=== PATIENT | male | born 1935 | race Caucasian/White ===

== ENCOUNTER → 2017-07-27 | Outpatient (CLI) | payer MEDICARE ==
[2017-07-27 13:23] LABS: HCT 47.4 % (39.0-53.0); MCHC 33.8 g/dL (31.0-37.0); MCV 91.7 fL (80.0-100.0); Mean Platelet Volume 8.3; Platelet Count 191 k/uL (150-450); RBC 5.17 m/uL (4.30-5.90); RDW 12.9 % (11.5-15.5); WBC 9.2 k/uL (3.8-10.6)
[2017-07-27 13:44] LABS: Calcium 9.5 mg/dL (8.4-10.2); Potassium 5.2 mmol/L (3.5-5.1)
[2017-07-27 14:00] LABS: T4, Free (Free Thyroxine) 0.92 ng/dL (0.78-2.19)
== END | disposition home or self-care (01) ==
LOC: LABWHC1 12:47
PROVIDERS: ATTEND Internal Medicine Interventional Cardiology
DX: I48.91 Unspecified atrial fibrillation (principal); I10 Essential (primary) hypertension
CPT/HCPCS: 36415; 80048; 84439; 84443; 85027

== ENCOUNTER → 2017-08-25 | Outpatient (CLI) | payer MEDICARE ==
[2017-08-25 14:29] LABS: HCT 46.1 % (39.0-53.0); HGB 15.7 gm/dL (13.0-17.5); MCH 31.1 pg (25.0-35.0); MCHC 33.9 g/dL (31.0-37.0); MCV 91.5 fL (80.0-100.0); Mean Platelet Volume 7.7; Platelet Count 177 k/uL (150-450); RBC 5.04 m/uL (4.30-5.90); WBC 8.5 k/uL (3.8-10.6)
[2017-08-25 14:39] LABS: Potassium 4.8 mmol/L (3.5-5.1)
== END | disposition home or self-care (01) ==
LOC: LABPAT 14:00
PROVIDERS: ATTEND Internal Medicine Interventional Cardiology
DX: Z01.812 Encounter for preprocedural laboratory examination (principal); I48.1 Persistent atrial fibrillation
CPT/HCPCS: 36415; 80051; 82565; 84520; 85027

== ENCOUNTER → 2017-09-02 | Day surgery (SDC) | payer MEDICARE ==
[2017-08-29 15:29] VITALS: BMI 29.2
[~2017-09-02] MED LIST: LACTATED RINGERS 1,000 ML IV SCH; PROPOFOL 10 MG/ML 20 ML VIAL IV ONE; SODIUM CHLORIDE 0.9% 1,000 ML IV SCH; SODIUM CHLORIDE 0.9% 500 ML IV ONE
--- NOTE | 2017-09-02 07:58 | CE ---
CARDIAC ELECTROPHYSIOLOGY REPORT DATE OF SERVICE: 09/02/2017 PROCEDURE: Electrical cardioversion. PERFORMED BY: Dr. Nayla Cameron. INDICATION: Persistent atrial fibrillation, unresponsive to pharmacological efforts. CLINICAL INFORMATION: Mr. Hampton is a gentleman with a history of hypertension, hyperlipidemia, who developed recent onset persistent atrial fibrillation, was brought in for elective cardioversion after due discussion regarding risks, benefits, options and adequate anticoagulation. PROCEDURE NOTE: Under the influence of ultra short-acting intravenous anesthetic agent with the attendance of the anesthesiologist, a single 200 joule shock was delivered with anterior and posterior patches. Patient converted to sinus rhythm and remained hemodynamically stable. He had sinus bradycardia. He was neurologically intact. This was a successful electrical cardioversion. He will be discharged on metoprolol 25 mg daily starting tomorrow and he will also continue Eliquis 5 mg b.i.d. and simvastatin 40 mg daily, and I will see him in the office on the at 10:45 am. Discharge instructions were given. Once patient is up and about, ambulates and has had a meal, he will be discharged. MMODL / IJN: [id number] /
[2017-09-02 08:02] VITALS: RESP 18
[2017-09-02 08:14] VITALS: TEMP 98
[2017-09-02 10:34] VITALS: PULSE 54
[2017-09-02 11:38] VITALS: BP 111/67
== END | disposition home or self-care (01) ==
LOC: CATHCVL 05:45
PROVIDERS: ATTEND Internal Medicine Interventional Cardiology
DX: I48.1 Persistent atrial fibrillation (principal); I10 Essential (primary) hypertension; E78.00 Pure hypercholesterolemia, unspecified; E78.5 Hyperlipidemia, unspecified; Z79.82 Long term (current) use of aspirin; Z79.01 Long term (current) use of anticoagulants; Z79.899 Other long term (current) drug therapy; F17.210 Nicotine dependence, cigarettes, uncomplicated
CPT/HCPCS: 92960; J2704

== ENCOUNTER → 2022-01-26 | Outpatient (CLI) | payer MEDICARE, OTHER ==
[2022-01-26 11:25] LABS: HCT 44.7 % (39.0-53.0); HGB 14.7 gm/dL (13.0-17.5); MCH 31.2 pg (25.0-35.0); MCHC 32.9 g/dL (31.0-37.0); MCV 94.9 fL (80.0-100.0); Mean Platelet Volume 9.4; Platelet Count 173 k/uL (150-450); RBC 4.71 m/uL (4.30-5.90); RDW 12.7 % (11.5-15.5)
[2022-01-26 11:30] LABS: Potassium 5.4 mmol/L (3.5-5.1)
== END | disposition home or self-care (01) ==
LOC: LABPAT 10:27
PROVIDERS: ATTEND Internal Medicine Interventional Cardiology
DX: Z00.00 Encounter for general adult medical examination without abnormal findings (principal)
CPT/HCPCS: 80051; 82565; 84520; 85027

== ENCOUNTER 2022-01-27 08:07 | Day surgery (SDC) | payer MEDICARE, OTHER ==
[2022-01-26 12:55] VITALS: BMI 29.5
[~2022-01-27 08:07] MED LIST changes: -LACTATED RINGERS 1,000 ML IV SCH; -PROPOFOL 10 MG/ML 20 ML VIAL IV ONE; -SODIUM CHLORIDE 0.9% 500 ML IV ONE
[2022-01-27 08:58] VITALS: TEMP 98.2
[2022-01-27] MEDS ORDERED: PROPOFOL 10 MG/ML 20 ML VIAL IV ONE (09:26)
[2022-01-27 13:40] VITALS: RESP 16
[2022-01-27 13:42] VITALS: BP 130/70; PULSE 69
--- NOTE | 2022-01-27 20:55 | CE ---
CARDIAC ELECTROPHYSIOLOGY REPORT PROCEDURE PERFORMED: Electrical cardioversion. INDICATION FOR PROCEDURE: Persistent atrial fibrillation/atypical flutter. DESCRIPTION OF PROCEDURE: Under the influence of [id number] intravenous anesthetic agent with the attendance of the anesthesiologist, a single shock of 200 joules was delivered with anterior and posterior patches. The patient converted to sinus rhythm, remained in sinus rhythm with sinus bradycardia. He was fully awake, neurologically intact. Blood pressure was slightly low requiring 1 dose of phenylephrine. This is a successful electrical cardioversion. He will be discharged later on today after he is up, ambulatory, and has had eaten something. He will be discharged later on today, and he has an appointment to see me on the of this month. Details were discussed with the patient and . CRISTINE / KAMRYNN: [id number] /
== END 2022-01-27 11:30 | disposition home or self-care (01) ==
LOC: CATHCVL 08:07
PROVIDERS: ATTEND Internal Medicine Interventional Cardiology
DX: I48.19 Other persistent atrial fibrillation (principal); I48.4 Atypical atrial flutter; I10 Essential (primary) hypertension; E78.5 Hyperlipidemia, unspecified; E78.00 Pure hypercholesterolemia, unspecified; Z88.8 Allergy status to other drugs, medicaments and biological substances; Z79.01 Long term (current) use of anticoagulants; Z79.899 Other long term (current) drug therapy
CPT/HCPCS: 92960; J2704

== ENCOUNTER 2022-01-30 07:36 | Inpatient (IN) | payer MEDICARE, OTHER ==
[2022-01-30] MEDS ORDERED: IPRATROPIUM-ALBUTEROL 3 ML NEB INHALATION STA (07:59)
--- NOTE | 2022-01-30 08:01 | ED ---
General Adult HPI - General Chief complaint: Shortness of Breath Stated complaint: SOB Time Seen by Provider: 01/30/22 07:46 Source: patient, RN notes reviewed, old records reviewed (Previous cardioversion) Mode of arrival: ambulatory Limitations: no limitations - History of Present Illness Initial comments: Patient is a pleasant 86-year-old male presenting to the emergency department with concerns with difficulty in breathing. Onset of symptoms was yesterday and has somewhat worsened since that time. No cough. No chest pain. No fever. No history of similar symptoms previously. Patient did recently discontinue smoking. Patient did have cardioversion done 3 days ago for atrial fibrillation. Patient is on anticoagulation with eliquis - Related Data Home Medications Medication Instructions Recorded Confirmed Apixaban [Eliquis] 5 mg PO BID 08/29/17 01/27/22 Simvastatin [Zocor] 40 mg PO HS 08/29/17 01/27/22 Metoprolol Tartrate [Lopressor] 50 mg PO TID 01/26/22 01/27/22 Allergies Allergy/AdvReac Type Severity Reaction Status Date / Time lisinopril Allergy facial Verified 01/30/22 07:43 swelling, difficulty breathing. Review of Systems ROS Statement: Those systems with pertinent positive or pertinent negative responses have been documented in the HPI. ROS Other: All systems not noted in ROS Statement are negative. Constitutional: Denies: fever Eyes: Denies: eye pain ENT: Denies: ear pain Respiratory: Reports: as per HPI, dyspnea. Denies: cough Cardiovascular: Denies: chest pain Endocrine: Denies: fatigue Gastrointestinal: Denies: abdominal pain Genitourinary: Denies: dysuria Musculoskeletal: Denies: back pain Skin: Denies: rash Neurological: Denies: weakness Past Medical History Past Medical History: Atrial Flutter, Hyperlipidemia, Hypertension History of Any Multi-Drug Resistant Organisms: None Reported Past Surgical History: Cholecystectomy, Tonsillectomy Past Anesthesia/Blood Transfusion Reactions: No Reported Reaction Past Psychological History: No Psychological Hx Reported Smoking Status: Former smoker Past Alcohol Use History: None Reported Past Drug Use History: None Reported General Exam Limitations: no limitations General appearance: alert, in no apparent distress Head exam: Present: normocephalic Eye exam: Present: normal appearance Neck exam: Present: normal inspection Respiratory exam: Present: wheezes (Mild expiratory wheeze) Cardiovascular Exam: Present: regular rate, normal rhythm GI/Abdominal exam: Present: soft. Absent: tenderness Extremities exam: Present: normal inspection. Absent: pedal edema, calf tenderness Neurological exam: Present: alert Psychiatric exam: Present: normal affect, normal mood Skin exam: Present: normal color Course Vital Signs 01/30/22 01/30/22 01/30/22 07:40 08:43 09:57 Temperature 98.5 F Pulse Rate 59 L 60 82 Respiratory 20 18 Rate Blood Pressure 176/82 140/74 O2 Sat by Pulse 97 96 Oximetry 01/30/22 13:13 Temperature Pulse Rate 82 Respiratory 18 Rate Blood Pressure 153/80 O2 Sat by Pulse 95 Oximetry EKG Findings - EKG Comments: EKG Findings:: Interpreted by me: Sinus bradycardia rate 58. AL 149. QRS 90. QT 379. QTC 475. Normal axis. Normal QRS. Nonspecific ST-T. Medical Decision Making - Medical Decision Making Patient reevaluated. Patient and family updated. Case was discussed with Dr. Fair, who will admit covering Dr. English. Cardiology will be placed on consult - Lab Data Result diagrams: 01/30/22 08:09 01/30/22 08:09 Lab Results 01/30/22 01/30/22 01/30/22 Range/Units 08:09 08:09 08:09 WBC 11.3 H (3.8-10.6) k/uL RBC 4.73 (4.30-5.90) m/uL Hgb 15.2 (13.0-17.5) gm/dL Hct 44.0 (39.0-53.0) % MCV 93.0 (80.0-100.0) fL MCH 32.2 (25.0-35.0) pg MCHC 34.6 (31.0-37.0) g/dL RDW 12.5 (11.5-15.5) % Plt Count 151 (150-450) k/uL MPV 9.8 Neutrophils % 88 % Lymphocytes % 4 % Monocytes % 6 % Eosinophils % 1 % Basophils % 0 % Neutrophils # 10.0 H (1.3-7.7) k/uL Lymphocytes # 0.5 L (1.0-4.8) k/uL Monocytes # 0.6 (0-1.0) k/uL Eosinophils # 0.1 (0-0.7) k/uL Basophils # 0.1 (0-0.2) k/uL PT 11.3 (9.0-12.0) sec INR 1.0 (<1.2) APTT 27.7 (22.0-30.0) sec Sodium 139 (137-145) mmol/L Potassium 5.1 (3.5-5.1) mmol/L Chloride 107 (98-107) mmol/L Carbon Dioxide 25 (22-30) mmol/L Anion Gap 7 mmol/L BUN 26 H (9-20) mg/dL Creatinine 1.14 (0.66-1.25) mg/dL Est GFR (CKD-EPI)AfAm 68 (>60 ml/min/1.73 sqM) Est GFR (CKD-EPI)NonAf 59 (>60 ml/min/1.73 sqM) Glucose 127 H (74-99) mg/dL Plasma Lactic Acid Jordi (0.7-2.0) mmol/L Calcium 8.6 (8.4-10.2) mg/dL Total Bilirubin 2.3 H (0.2-1.3) mg/dL AST 27 (17-59) U/L ALT 24 (4-49) U/L Alkaline Phosphatase 61 (38-126) U/L Troponin I (0.000-0.034) ng/mL NT-Pro-B Natriuret Pep pg/mL Total Protein 6.5 (6.3-8.2) g/dL Albumin 4.2 (3.5-5.0) g/dL Coronavirus (PCR) (Not Detectd) Influenza Type A RNA (Not Detectd) Influenza Type B (PCR) (Not Detectd) 01/30/22 01/30/22 01/30/22 Range/Units 08:09 08:09 08:09 WBC (3.8-10.6) k/uL RBC (4.30-5.90) m/uL Hgb (13.0-17.5) gm/dL Hct (39.0-53.0) % MCV (80.0-100.0) fL MCH (25.0-35.0) pg MCHC (31.0-37.0) g/dL RDW (11.5-15.5) % Plt Count (150-450) k/uL MPV Neutrophils % % Lymphocytes % % Monocytes % % Eosinophils % % Basophils % % Neutrophils # (1.3-7.7) k/uL Lymphocytes # (1.0-4.8) k/uL Monocytes # (0-1.0) k/uL Eosinophils # (0-0.7) k/uL Basophils # (0-0.2) k/uL PT (9.0-12.0) sec INR (<1.2) APTT (22.0-30.0) sec Sodium (137-145) mmol/L Potassium (3.5-5.1) mmol/L Chloride (98-107) mmol/L Carbon Dioxide (22-30) mmol/L Anion Gap mmol/L BUN (9-20) mg/dL Creatinine (0.66-1.25) mg/dL Est GFR (CKD-EPI)AfAm (>60 ml/min/1.73 sqM) Est GFR (CKD-EPI)NonAf (>60 ml/min/1.73 sqM) Glucose (74-99) mg/dL Plasma Lactic Acid Jordi 1.1 (0.7-2.0) mmol/L Calcium (8.4-10.2) mg/dL Total Bilirubin (0.2-1.3) mg/dL AST (17-59) U/L ALT (4-49) U/L Alkaline Phosphatase (38-126) U/L Troponin I 0.036 H* (0.000-0.034) ng/mL NT-Pro-B Natriuret Pep 3470 pg/mL Total Protein (6.3-8.2) g/dL Albumin (3.5-5.0) g/dL Coronavirus (PCR) (Not Detectd) Influenza Type A RNA (Not Detectd) Influenza Type B (PCR) (Not Detectd) 01/30/22 01/30/22 Range/Units 08:09 08:09 WBC (3.8-10.6) k/uL RBC (4.30-5.90) m/uL Hgb (13.0-17.5) gm/dL Hct (39.0-53.0) % MCV (80.0-100.0) fL MCH (25.0-35.0) pg MCHC (31.0-37.0) g/dL RDW (11.5-15.5) % Plt Count (150-450) k/uL MPV Neutrophils % % Lymphocytes % % Monocytes % % Eosinophils % % Basophils % % Neutrophils # (1.3-7.7) k/uL Lymphocytes # (1.0-4.8) k/uL Monocytes # (0-1.0) k/uL Eosinophils # (0-0.7) k/uL Basophils # (0-0.2) k/uL PT (9.0-12.0) sec INR (<1.2) APTT (22.0-30.0) sec Sodium (137-145) mmol/L Potassium (3.5-5.1) mmol/L Chloride (98-107) mmol/L Carbon Dioxide (22-30) mmol/L Anion Gap mmol/L BUN (9-20) mg/dL Creatinine (0.66-1.25) mg/dL Est GFR (CKD-EPI)AfAm (>60 ml/min/1.73 sqM) Est GFR (CKD-EPI)NonAf (>60 ml/min/1.73 sqM) Glucose (74-99) mg/dL Plasma Lactic Acid Jordi (0.7-2.0) mmol/L Calcium (8.4-10.2) mg/dL Total Bilirubin (0.2-1.3) mg/dL AST (17-59) U/L ALT (4-49) U/L Alkaline Phosphatase (38-126) U/L Troponin I (0.000-0.034) ng/mL NT-Pro-B Natriuret Pep pg/mL Total Protein (6.3-8.2) g/dL Albumin (3.5-5.0) g/dL Coronavirus (PCR) Not Detected (Not Detectd) Influenza Type A RNA Not Detected (Not Detectd) Influenza Type B (PCR) Not Detected (Not Detectd) - Radiology Data Radiology results: image reviewed (Chest x-ray also read by myself shows cardiomegaly with some vascular congestion) Disposition Clinical Impression: Congestive heart failure Disposition: ADMITTED IP TO THIS HOSP Is patient prescribed a controlled substance at d/c from ED?: No Referrals: Juan J English MD [Primary Care Provider] - 1-2 days Time of Disposition: 13:27
[2022-01-30 08:21] LABS: Basophils # (A) 0.1 k/uL (0-0.2); Basophils % (A) 0 %; Eosinophils # (A) 0.1 k/uL (0-0.7); Eosinophils % (A) 1 %; HGB 15.2 gm/dL (13.0-17.5); Lymphocytes # (A) 0.5 k/uL (1.0-4.8); Lymphocytes % (A) 4 %; MCH 32.2 pg (25.0-35.0); MCHC 34.6 g/dL (31.0-37.0); Mean Platelet Volume 9.8; Monocytes # (A) 0.6 k/uL (0-1.0); Monocytes % (A) 6 %; Neutrophils % (A) 88 %; Platelet Count 151 k/uL (150-450); RBC 4.73 m/uL (4.30-5.90); RDW 12.5 % (11.5-15.5); WBC 11.3 k/uL (3.8-10.6)
--- NOTE | 2022-01-30 08:27 | XR ---
EXAMINATION TYPE: XR chest 2V DATE OF EXAM: COMPARISON: NONE HISTORY: Shortness of breath TECHNIQUE: Frontal and lateral views of the chest are obtained. FINDINGS: Scattered senescent parenchymal changes noted. Hyperinflation compatible with COPD. No evidence for infiltrate. No evidence for atelectasis. Cardiomegaly with mild pulmonary venous engorgement. No evidence for overt failure. Mediastinal structures are stable and grossly unremarkable. No evidence for hilar prominence. Degenerative changes dorsal spine. IMPRESSION: 1. Cardiomegaly with mild pulmonary venous engorgement. No evidence for overt failure. 2. COPD.
[2022-01-30 08:31] LABS: Partial Thromboplastin Time 27.7 sec (22.0-30.0); Prothrombin Time 11.3 sec (9.0-12.0)
[2022-01-30 08:34] LABS: Calcium 8.6 mg/dL (8.4-10.2); Total Bilirubin 2.3 mg/dL (0.2-1.3)
[2022-01-30 08:36] LABS: Albumin 4.2 g/dL (3.5-5.0); Potassium 5.1 mmol/L (3.5-5.1); Total Protein 6.5 g/dL (6.3-8.2)
[2022-01-30] MEDS ORDERED: ASPIRIN 325 MG TAB PO STA (13:27)
[2022-01-30] MEDS: FUROSEMIDE 10 MG/ML 4 ML VIAL IV SCH (14:32)
[2022-01-30] MEDS: METOPROLOL TARTRATE 50 MG TAB PO SCH (15:09)
[2022-01-30] MEDS ORDERED: ONDANSETRON 4 MG/2 ML VIAL IVP PRN (16:28)
[2022-01-30] MEDS ORDERED: LORazepam 0.5 MG TAB PO PRN (16:28)
[2022-01-30] MEDS ORDERED: LACTULOSE 20 GM/30 ML CUP PO PRN (16:28)
[2022-01-30] MEDS ORDERED: CALCIUM CARBONATE 500 MG CHEWABLE PO PRN (16:28)
[2022-01-30] MEDS ORDERED: MELATONIN 3 MG TABLET PO PRN (16:28)
[2022-01-30] MEDS ORDERED: ACETAMINOPHEN TAB 325 MG TAB PO PRN (16:28)
[2022-01-30] MEDS ORDERED: NALOXONE 0.4 MG/ML 1 ML VIAL IV PRN (16:28)
--- NOTE | 2022-01-30 16:28 | P.HPIM ---
History of Present Illness H&P Date: 01/30/22 Chief Complaint: Short of breath This is a very pleasant 86-year-old patient who follows with Dr. Juan J English. Insights Strategist Dr. CARLA Cameron. On 02/06/2022 patient underwent DC cardioversion for atrial flutter by Dr. CARLA Cameron and was back in sinus rhythm. Patient did well the following day. Yesterday started noticing that he was getting short of breath. Did progress to this morning. Patient has some lower extremity edema which she's hasn't noticed himself. No chest pain or palpitation no cough no fever no chills. Patient is accompanied by his in the ER. Patient had a stress test about 5 months ago that was negative. Review of systems: GEN.: Tired EYES: None HEENT: None NECK: None RESPIRATORY: As above CARDIOVASCULAR: As above GASTROINTESTINAL: None GENITOURINARY: None MUSCULOSKELETAL: None LYMPHATICS: None HEMATOLOGICAL: None PSYCHIATRY: None NEUROLOGICAL: None Past medical history to include: Atrial flutter fibrillation cardioverted on 02/06/2022, hyperlipidemia, hypertension Social history: Patient smoked for over 70 years stopping about 2 weeks ago. Alcohol rarely. 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 . Family history: Reviewed, noncontributory to presentation Physical examination: VITAL SIGNS: 98.5, 82, 18, 1 53 x 80, 95% room air GENERAL: BMI 29.8, sitting up, not in distress. EYES: Pupils equal. Conjunctiva normal. HEENT: External appearance of nose and ears normal, oral cavity grossly normal. NECK: JVD raised; masses not palpable. HEART: First and second heart sounds are normal; edema present. LUNGS: Respiratory rate normal; clear to auscultation. ABDOMEN: Soft, nontender, liver spleen not palpable, no masses palpable. PSYCH: Alert and oriented x3; mood and affect normal. MUSCULOSKELETAL:No Clubbing/cyanosis;muscles-grossly intact, OA NEUROLOGICAL: Cranial nerves grossly intact; no facial asymmetry, power and sensation grossly intact. LYMPHATICS: No lymph nodes palpable in the axilla and neck INVESTIGATIONS, reviewed in the clinical context: WBC 11.3 hemoglobin 15.2 platelets 151 potassium 5.1 BUN 26 creatinine 1.14 Troponin I 0.036, 0.034 ProBNP 3470 COVID 19/influenza type A/influenza diabetes: Not detected EKG tracing personally reviewed by me-no sinus rhythm, ST segment depression in inferolateral leads, rate 58 Chest x-ray film personally reviewed by me-cardiomegaly, some venous prominence. Hyperinflation Assessment and plan: -Acute congestive heart failure in a patient had DC cardioversion for atrial flutter fibrillation 3 days ago. EF not known. IV Lasix. Telemetry. Consult cardiology. 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 Nebulized Pulmicort -Hyperlipidemia Zocor -Positive troponin could be from underlying CHF. Patient has ST segment depression in inferolateral leads. Patient may benefit from a nuclear stress test, to rule out underlying ischemic heart disease Telemetry. IV Lasix. Resume home medications. DuoNeb. Nebulized Pulmicort. Eliquis. Care was discussed with the patient and at the bedside. Questions answered. Past Medical History Past Medical History: Atrial Flutter, Hyperlipidemia, Hypertension History of Any Multi-Drug Resistant Organisms: None Reported Past Surgical History: Cholecystectomy, Tonsillectomy Past Anesthesia/Blood Transfusion Reactions: No Reported Reaction Past Psychological History: No Psychological Hx Reported Smoking Status: Former smoker Past Alcohol Use History: None Reported Past Drug Use History: None Reported Medications and Allergies Home Medications Medication Instructions Recorded Confirmed Type Apixaban [Eliquis] 5 mg PO BID 08/29/17 01/30/22 History Simvastatin [Zocor] 40 mg PO HS 08/29/17 01/30/22 History Metoprolol Tartrate [Lopressor] 25 mg PO BID 01/30/22 01/30/22 History Allergies Allergy/AdvReac Type Severity Reaction Status Date / Time lisinopril Allergy facial Verified 01/30/22 15:24 swelling, difficulty breathing. Physical Exam Vitals: Vital Signs Temp Pulse Resp BP Pulse Ox 01/30/22 14:35 83 18 154/72 96 01/30/22 13:13 82 18 153/80 95 01/30/22 09:57 82 18 140/74 96 01/30/22 08:43 60 01/30/22 07:40 98.5 F 59 L 20 176/82 97 Intake and Output 01/30/22 01/30/22 01/30/22 06:59 14:59 22:59 Other: Weight 97.069 kg Results CBC & Chem 7: 01/30/22 08:09 01/30/22 08:09 Labs: Abnormal Lab Results - Last 24 Hours (Table) 01/30/22 01/30/22 01/30/22 Range/Units 08:09 08:09 08:09 WBC 11.3 H (3.8-10.6) k/uL Neutrophils # 10.0 H (1.3-7.7) k/uL Lymphocytes # 0.5 L (1.0-4.8) k/uL BUN 26 H (9-20) mg/dL Glucose 127 H (74-99) mg/dL Total Bilirubin 2.3 H (0.2-1.3) mg/dL Troponin I 0.036 H* (0.000-0.034) ng/mL
[2022-01-30] MEDS: NITROGLYCERIN OINT 1 INCH/GM PACKET TOPICAL SCH ×2 (18:05→20:08)
[2022-01-30] MEDS: ATORVASTATIN 20 MG TAB PO SCH (20:09)
[2022-01-30] MEDS: APIXABAN 5 MG TAB PO SCH (20:09)
[2022-01-31] MEDS: METOPROLOL TARTRATE 50 MG TAB PO SCH ×2 (00:15→08:23)
[2022-01-31] MEDS: FUROSEMIDE 10 MG/ML 4 ML VIAL IV SCH ×2 (02:16→13:01)
[2022-01-31 07:17] LABS: Calcium 8.9 mg/dL (8.4-10.2); Potassium 4.2 mmol/L (3.5-5.1)
[2022-01-31] MEDS: APIXABAN 5 MG TAB PO SCH ×2 (08:23→20:08)
[2022-01-31] MEDS: NITROGLYCERIN OINT 1 INCH/GM PACKET TOPICAL SCH ×4 (08:23→20:08)
[2022-01-31] MEDS ORDERED: ASPIRIN 325 MG TAB PO SCH (09:00)
--- NOTE | 2022-01-31 14:56 | P.CRDCN ---
History of Present Illness Consult date: 01/31/22 Consult reason: congestive heart failure History of present illness: History of present illness: This is an 86-year-old male patient of Dr. Joe Cameron with past medical history of atrial fibrillation, atrial flutter, hypertension, dyslipidemia, history of tobacco use and dependence. Patient had cardioversion done initially in 2018 with good results. He states that recently he was mowing the lawn and developed shortness of breath and was found to be in atrial flutter 3-[address] CARLA Cameron scheduled him for another cardioversion which was performed on 01/27/2022. Patient converted to a sinus rhythm and was discharged home. His Lopressor dose prior to procedure was 50 mg 3 times daily and he was discharged home on 25 twice daily. Patient states he was doing well until evening when he developed shortness of breath along with palpitations which were intermittent and yesterday he had lower extremity edema which has subsequently resolved. Echocardiogram 12/2020: EF of 50%, Mild MR, mild TR, mild OK, mild to moderate aortic regurgitation EKG sinus bradycardia. compliance monitor sinus bradycardia. No documented episodes of atrial fibrillation/flutter Chest x-ray: Cardiomegaly with mild pulmonary venous engorgement. No evidence of overt failure. COPD. WBC 11.3, hemoglobin 15.2. Electrolytes normal. BUN 26 and creatinine 1.14. Repeat BUN 31 and creatinine 1.44. Troponin 0.036, 0.034, 0.045. ProBNP 3470. Influenza A not detected. Influenza B not detected. Coronavirus PCR not detected. Review Of Systems: Constitutional: No fever, no chills. No weakness, fatigue or lethargy. EENT: No headache. No dizziness. Lungs: No shortness of breath, cough, no sputum production. No wheezing. Cardiovascular: No chest pain, no lower extremity edema. No palpitations. No paroxysmal nocturnal dyspnea. No orthopnea. No lightheadedness or dizziness. No syncopal episodes. Abdominal: No abdominal pain. No nausea, vomiting. No diarrhea. No constipation. No bloody or tarry stools.. No loss of appetite. Genitourinary: No dysuria.. No urinary retention. Musculoskeletal: No myalgias. No muscle weakness, no gait dysfunction, no frequent falls. No back pain. No neck pain. Integumentary: No wounds, no lesions. No rash or pruritus. No unusual bruising. Neurologic: No aphasia. No facial droop. No change in mentation. No head injury. No headache. No paralysis. No paresthesia. Psychiatric: No depression. No anxiety. Endocrine: No abnormal blood sugars. Physical examination: Gen: This is an 86-year-old male. He sitting on edge of the bed and appears to be comfortable and in no acute distress. Patient's is at bedside. VS: Afebrile, heart rate in the 50s, blood pressure 113/64, pulse ox 98% on room air. HEENT: Head is atraumatic, normocephalic. Pupils equal, round. Sclerae is anicteric. NECK: Supple. No JVD. No lymphadenopathy. No thyromegaly. LUNGS: Diminished at the bases. No wheezes or rhonchi. No intercostal retractions. HEART: Regular rate and rhythm. No murmur. ABDOMEN: Soft. Bowel sounds are present. No masses. No tenderness. EXTREMITIES: No pedal edema. No calf tenderness. NEUROLOGICAL: Patient is awake, alert and oriented x3. Cranial nerves 2 through 12 are grossly intact. Assessment: Shortness of breath, multifactorial Acute diastolic heart failure History of atrial flutter status post successful cardioversion Bradycardia Dyslipidemia Hypertension Plan: Continue patient on IV Lasix 40 mg every 12 hours for another 24 hours with plan to discharge home on oral Lasix Monitor I&O, daily weights electrolytes and renal function Continue patient on his home cardiac medications including eliquis 5 mg twice daily, Lopressor will be decreased to 25 mg twice daily, atorvastatin 20 mg at bedtime Continue cardiac monitoring Obtain 2-D echocardiogram and Doppler study to assess cardiac structure and function Further recommendations to follow based upon clinical course Patient will have follow-up with CARLA Cameron after discharge. Thank you kindly for this consultation. Nurse practitioner note has been reviewed, I agree with documented findings and plan of care. Patient was seen and examined. Past Medical History Past Medical History: Atrial Flutter, Hyperlipidemia, Hypertension Additional Past Medical History / Comment(s): Cardioversion 01/26/22 and in 2018. History of Any Multi-Drug Resistant Organisms: None Reported Past Surgical History: Cholecystectomy, Tonsillectomy Past Anesthesia/Blood Transfusion Reactions: No Reported Reaction Past Psychological History: No Psychological Hx Reported Smoking Status: Former smoker Past Alcohol Use History: None Reported Additional Past Alcohol Use History / Comment(s): quit smoking 6 days ago, hx of 2 packs/week., started smoking as teenager Past Drug Use History: None Reported - Past Family History Mother Family Medical History: Hypertension Father History Unknown: Yes Family Medical History: Hypertension Medications and Allergies Home Medications Medication Instructions Recorded Confirmed Type Apixaban [Eliquis] 5 mg PO BID 08/29/17 01/30/22 History Simvastatin [Zocor] 40 mg PO HS 08/29/17 01/30/22 History Metoprolol Tartrate [Lopressor] 25 mg PO BID 01/30/22 01/30/22 History Allergies Allergy/AdvReac Type Severity Reaction Status Date / Time lisinopril Allergy facial Verified 01/30/22 15:24 swelling, difficulty breathing. Physical Exam Vitals: Vital Signs Temp Pulse Pulse Resp BP BP Pulse Ox 01/31/22 07:54 98.5 F 59 L 18 111/70 97 01/31/22 03:37 97.5 F L 54 L 16 143/80 95 01/31/22 00:00 98.2 F 55 L 15 120/68 96 01/30/22 20:00 98.0 F 50 L 18 105/65 95 01/30/22 17:34 97.6 F 95 18 132/75 95 01/30/22 16:46 84 18 150/81 96 01/30/22 14:35 83 18 154/72 96 01/30/22 13:13 82 18 153/80 95 01/30/22 09:57 82 18 140/74 96 01/30/22 08:43 60 Intake and Output 01/30/22 01/31/22 01/31/22 22:59 06:59 14:59 Intake Total 540 540 Balance 540 540 Intake: Oral 540 540 Other: Voiding Method Toilet Toilet # Voids 1 3 Weight 97.069 kg 94.2 kg Results 01/30/22 08:09 01/31/22 06:21 Cardiac Enzymes 01/30/22 01/30/22 01/30/22 Range/Units 08:09 08:09 14:11 AST 27 (17-59) U/L Troponin I 0.036 H* 0.034 (0.000-0.034) ng/mL 01/30/22 Range/Units 17:14 AST (17-59) U/L Troponin I 0.045 H* (0.000-0.034) ng/mL Coagulation 01/30/22 Range/Units 08:09 PT 11.3 (9.0-12.0) sec APTT 27.7 (22.0-30.0) sec CBC 01/30/22 Range/Units 08:09 WBC 11.3 H (3.8-10.6) k/uL RBC 4.73 (4.30-5.90) m/uL Hgb 15.2 (13.0-17.5) gm/dL Hct 44.0 (39.0-53.0) % Plt Count 151 (150-450) k/uL Comprehensive Metabolic Panel 01/30/22 01/31/22 Range/Units 08:09 06:21 Sodium 139 141 (137-145) mmol/L Potassium 5.1 4.2 (3.5-5.1) mmol/L Chloride 107 104 (98-107) mmol/L Carbon Dioxide 25 27 (22-30) mmol/L BUN 26 H 31 H (9-20) mg/dL Creatinine 1.14 1.44 H (0.66-1.25) mg/dL Glucose 127 H 104 H (74-99) mg/dL Calcium 8.6 8.9 (8.4-10.2) mg/dL AST 27 (17-59) U/L ALT 24 (4-49) U/L Alkaline Phosphatase 61 (38-126) U/L Total Protein 6.5 (6.3-8.2) g/dL Albumin 4.2 (3.5-5.0) g/dL Current Medications Generic Name Dose Route Start Last Admin Trade Name Freq PRN Reason Stop Dose Admin Acetaminophen 650 mg 01/30/22 16:28 Acetaminophen Tab 325 Mg Tab PO Q6HR PRN Mild Pain or Fever > 100.5 Apixaban 5 mg 01/30/22 21:00 01/30/22 20:09 Apixaban 5 Mg Tab PO 5 mg BID ETHAN Administration Protocol Aspirin 325 mg 01/31/22 09:00 Aspirin 325 Mg Tab PO DAILY ETHAN Atorvastatin Calcium 20 mg 01/30/22 21:00 01/30/22 20:09 Atorvastatin 20 Mg Tab PO 20 mg HS ETHAN Administration Calcium Carbonate/Glycine 1,000 mg 01/30/22 16:28 Calcium Carbonate 500 Mg Chewable PO Q4HR PRN Dyspepsia Furosemide 40 mg 01/30/22 14:00 01/31/22 02:16 Furosemide 10 Mg/Ml 4 Ml Vial IV 40 mg Q12H ETHAN Administration Lactulose 20 gm 01/30/22 16:28 Lactulose 20 Gm/30 Ml Cup PO DAILY PRN Constipation Lorazepam 0.5 mg 01/30/22 16:28 Lorazepam 0.5 Mg Tab PO Q6HR PRN Anxiety Melatonin 3 mg 01/30/22 16:28 Melatonin 3 Mg Tablet PO HS PRN Insomnia Metoprolol Tartrate 50 mg 01/30/22 16:00 01/31/22 00:15 Metoprolol Tartrate 50 Mg Tab PO Not Given TID [facility] Naloxone HCl 0.2 mg 01/30/22 16:28 Naloxone 0.4 Mg/Ml 1 Ml Vial IV Q2M PRN Opioid Reversal Nitroglycerin 0.5 inch 01/30/22 18:00 01/30/22 20:08 Nitroglycerin Oint 1 Inch/Gm Packet TOPICAL 0.5 inch QID [facility] Administration Ondansetron HCl 4 mg 01/30/22 16:28 Ondansetron 4 Mg/2 Ml Vial IVP Q8HR PRN Nausea And Vomiting Intake and Output 01/30/22 01/31/22 01/31/22 22:59 06:59 14:59 Intake Total 540 540 Balance 540 540 Intake: Oral 540 540 Other: Voiding Method Toilet Toilet # Voids 1 3 Weight 97.069 kg 94.2 kg 01/30/22 08:09 01/31/22 06:21
--- NOTE | 2022-01-31 15:33 | P.PN ---
Progress Note - Text Progress Note Date: 01/31/22 Chief Complaint: Short of breath This is a very pleasant 86-year-old patient who follows with Dr. Juan J English. 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 On 02/06/2022 patient underwent DC cardioversion for atrial flutter by Dr. CARLA Cameron and was back in sinus rhythm. Patient did well the following day. Yesterday started noticing that he was getting short of breath. Did progress to this morning. Patient has some lower extremity edema which she's hasn't noticed himself. No chest pain or palpitation no cough no fever no chills. Patient is accompanied by his in the ER. Patient had a stress test about 5 months ago that was negative. Admitted with CHF exacerbation. IV Lasix. 01/31/2022: Patient making good urine. Breathing improving. Sitting up in a chair. Oral intake fair. at the bedside. IV Lasix 40 mg every 12. Creatinine up to 1.44. Consult nephrology. Active Medications Acetaminophen (Acetaminophen Tab 325 Mg Tab) 650 mg PO Q6HR PRN PRN Reason: Mild Pain or Fever > 100.5 Apixaban (Apixaban 5 Mg Tab) 5 mg PO BID [facility]; Protocol Last Admin: 01/31/22 08:23 Dose: 5 mg Atorvastatin Calcium (Atorvastatin 20 Mg Tab) 20 mg PO HS [facility] Last Admin: 01/30/22 20:09 Dose: 20 mg Calcium Carbonate/Glycine (Calcium Carbonate 500 Mg Chewable) 1,000 mg PO Q4HR PRN PRN Reason: Dyspepsia Furosemide (Furosemide 10 Mg/Ml 4 Ml Vial) 40 mg IV Q12H [facility] Last Admin: 01/31/22 13:01 Dose: 40 mg Lactulose (Lactulose 20 Gm/30 Ml Cup) 20 gm PO DAILY PRN PRN Reason: Constipation Lorazepam (Lorazepam 0.5 Mg Tab) 0.5 mg PO Q6HR PRN PRN Reason: Anxiety Melatonin (Melatonin 3 Mg Tablet) 3 mg PO HS PRN PRN Reason: Insomnia Metoprolol Tartrate (Metoprolol Tartrate 25 Mg Tab) 25 mg PO BID [facility] Naloxone HCl (Naloxone 0.4 Mg/Ml 1 Ml Vial) 0.2 mg IV Q2M PRN PRN Reason: Opioid Reversal Nitroglycerin (Nitroglycerin Oint 1 Inch/Gm Packet) 0.5 inch TOPICAL QID [facility] Last Admin: 01/31/22 12:18 Dose: 0.5 inch Ondansetron HCl (Ondansetron 4 Mg/2 Ml Vial) 4 mg IVP Q8HR PRN PRN Reason: Nausea And Vomiting Past medical history to include: Atrial flutter fibrillation cardioverted on 02/06/2022, hyperlipidemia, hypertension Social history: Patient smoked for over 70 years stopping about 2 weeks ago. Alcohol rarely. 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 . Family history: Reviewed, noncontributory to presentation Physical examination: VITAL SIGNS: 98.5, 53, 17, 11 3 x 64, 98% room air GENERAL: Sitting up in a chair, breathing better EYES: Pupils equal. Conjunctiva normal. HEENT: External appearance of nose and ears normal, oral cavity grossly normal. NECK: JVD raised; masses not palpable. HEART: First and second heart sounds are normal; edema present. LUNGS: Respiratory rate normal; clear to auscultation. ABDOMEN: Soft, nontender, liver spleen not palpable, no masses palpable. PSYCH: Alert and oriented x3; mood and affect normal. MUSCULOSKELETAL:No Clubbing/cyanosis;muscles-grossly intact, OA INVESTIGATIONS, reviewed in the clinical context: 01/31/2022: Potassium 4.2 BUN 31 creatinine 1.44 WBC 11.3 hemoglobin 15.2 platelets 151 potassium 5.1 BUN 26 creatinine 1.14 Troponin I 0.036, 0.034 ProBNP 3470 COVID 19/influenza type A/influenza diabetes: Not detected EKG tracing personally reviewed by me-no sinus rhythm, ST segment depression in inferolateral leads, rate 58 Chest x-ray film personally reviewed by me-cardiomegaly, some venous prominence. Hyperinflation Assessment and plan: -Acute congestive heart failure in a patient had DC cardioversion for atrial flutter fibrillation 3 days ago. EF not known.: Slow to respond IV Lasix. Follow with cardiology. -Acute kidney injury, likely from cardiorenal syndrome Consult nephrology. UA. Renal ultrasound. 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 Nebulized Pulmicort -Hyperlipidemia Zocor -Positive troponin could be from underlying CHF. Patient has ST segment depression in inferolateral leads. Might benefit from a nuclear stress test, to rule out underlying ischemic heart disease Continue IV Lasix. DuoNeb. Nebulized Pulmicort. Eliquis. Discussed with patient and . Consult nephrology. Renal ultrasound. UA.
[2022-01-31 17:38] LABS: Appearance,Urine Clear (Clear); Bilirubin,Urine Negative (Negative); Blood,Urine Negative (Negative); Color,Urine Colorless; Glucose,Urine (UA) Negative (Negative); Ketones,Urine Negative (Negative); Leukocyte Esterase,Urine Negative (Negative); Nitrite,Urine Negative (Negative); Protein,Urine Negative (Negative); Specific Gravity,Urine 1.008 (1.001-1.035); Urobilinogen,Urine <2.0 mg/dL (<2.0)
--- NOTE | 2022-01-31 18:57 | US ---
EXAMINATION TYPE: US kidneys/renal and bladder DATE OF EXAM: 01/31/2022 COMPARISON: NONE CLINICAL HISTORY: Evaluate for CK D. Exam done portable EXAM MEASUREMENTS: Right Kidney: 9.7 x 4.9 x 4.7 cm Left Kidney: 10.1 x 4.9 x 5.1 cm Right Kidney: 1.7cm cystic area inferior pole Left Kidney: 3.3cm cystic area mid pole Bladder: not fully distended, appears wnl as seen IMPRESSION: Bilateral renal cysts. No evidence of solid renal mass or obstruction.
[2022-01-31] MEDS: ATORVASTATIN 20 MG TAB PO SCH (20:08)
[2022-01-31] MEDS: METOPROLOL TARTRATE 25 MG TAB PO SCH (20:08)
[2022-02-01] MEDS: FUROSEMIDE 10 MG/ML 4 ML VIAL IV SCH (01:19)
[2022-02-01] MEDS: APIXABAN 5 MG TAB PO SCH (08:35)
[2022-02-01] MEDS: METOPROLOL TARTRATE 25 MG TAB PO SCH ×2 (08:36→20:37)
[2022-02-01] MEDS: NITROGLYCERIN OINT 1 INCH/GM PACKET TOPICAL SCH (08:36)
[2022-02-01] MEDS: FUROSEMIDE 20 MG TAB PO SCH (09:12)
[2022-02-01 09:41] LABS: Potassium 3.9 mmol/L (3.5-5.1)
[2022-02-01] MEDS: AMIODARONE 200 MG TAB PO SCH (10:57)
--- NOTE | 2022-02-01 11:35 | P.NPCON ---
History of Present Illness - Reason for Consult acute renal failure - History of Present Illness Patient is an 86-year-old male with history of atrial fibrillation, hypertension, hyperlipidemia. Patient had recent cardioversion done on 01/27/2022. He stated that he did not feel completely normal since the procedure and was complaining of increased weakness fatigue and develop shortness of breath as well. Chest x-ray showed evidence of pulmonary venous congestion. Patient was given IV Lasix and he states he is feeling better. Heart rate has been in the 50s to 60s. Blood pressure was not low. Good urine output per patient. No history of underlying chronic kidney disease. Serum creatinine was 1.1 on initial admission and increased to 1.4 yesterday and to date is at 1.6. Review of Systems As per HPI. Past Medical History Past Medical History: Atrial Flutter, Hyperlipidemia, Hypertension Additional Past Medical History / Comment(s): Cardioversion 01/26/22 and in 2018. History of Any Multi-Drug Resistant Organisms: None Reported Past Surgical History: Cholecystectomy, Tonsillectomy Past Anesthesia/Blood Transfusion Reactions: No Reported Reaction Past Psychological History: No Psychological Hx Reported Smoking Status: Former smoker Past Alcohol Use History: None Reported Additional Past Alcohol Use History / Comment(s): quit smoking 6 days ago, hx of 2 packs/week., started smoking as teenager Past Drug Use History: None Reported - Past Family History Mother Family Medical History: Hypertension Father History Unknown: Yes Family Medical History: Hypertension Medications and Allergies Home Medications Medication Instructions Recorded Confirmed Type Apixaban [Eliquis] 5 mg PO BID 08/29/17 01/30/22 History Simvastatin [Zocor] 40 mg PO HS 08/29/17 01/30/22 History Metoprolol Tartrate [Lopressor] 25 mg PO BID 01/30/22 01/30/22 History Allergies Allergy/AdvReac Type Severity Reaction Status Date / Time lisinopril Allergy facial Verified 01/30/22 15:24 swelling, difficulty breathing. Physical Exam Vitals: Vital Signs Temp Pulse Resp BP Pulse Ox 02/01/22 08:35 98 F 69 18 136/61 97 02/01/22 08:18 95 02/01/22 03:48 97.6 F 66 15 128/75 95 02/01/22 00:00 97.5 F L 57 L 20 135/65 92 L 01/31/22 20:00 97.5 F L 64 18 128/73 96 01/31/22 15:45 88 18 136/81 97 Intake and Output 01/31/22 02/01/22 02/01/22 22:59 06:59 14:59 Intake Total 540 780 118 Output Total 550 Balance -10 780 118 Intake: Oral 540 780 118 Output: Urine 550 Other: Voiding Method Toilet Toilet Toilet # Voids 2 Weight 92.2 kg Patient is awake, comfortable, no acute distress Examination of the heart S1 and S2 Examination of the lungs bilateral breath sounds are heard Abdomen is soft nontender Examination of the lower extremities shows trace edema bilaterally TESTING SPECIALIST exam grossly intact Results - Lab Results Most recent lab results Calcium 9.0 mg/dL (8.4-10.2) 02/01/22 09:09 01/30/22 08:09 02/01/22 09:09 Assessment and Plan Assessment: 1. Acute kidney injury, nonoliguric, mostly cardiorenal. UA is completely benign and there is no evidence of obstruction noted on ultrasound of the kidneys. No nephrotoxic agents on board. 2. Atrial fibrillation with RVR status post cardioversion on 01/27/2022. Heart rate currently controlled and maintained on metoprolol 3. Hypertension currently controlled 4. CHF acute, most likely diastolic. Ejection fraction not available 5. Dyslipidemia Plan: Agree with decreasing diuretics. Avoid hypotension Continue to monitor urine output Repeat labs in a.m. Patient is advised to avoid any nonsteroidal anti-inflammatory agents. Thank you for the consultation. We'll continue to follow the patient with you during his hospitalization.
--- NOTE | 2022-02-01 11:55 | P.PN ---
Subjective Progress Note Date: 02/01/22 HISTORY OF PRESENT ILLNESS: This is an 86-year-old male patient of Dr. Joe Cameron with past medical history of atrial fibrillation, atrial flutter, hypertension, dyslipidemia, history of tobacco use and dependence. Patient had cardioversion done initially in 2018 with good results. He states that recently he was mowing the lawn and developed shortness of breath and was found to be in atrial flutter 3-[address] CARLA Cameron scheduled him for another cardioversion which was performed on 01/27/2022. Patient converted to a sinus rhythm and was discharged home. His Lopressor dose prior to procedure was 50 mg 3 times daily and he was discharged home on 25 twice daily. Patient states he was doing well until evening when he developed shortness of breath along with palpitations which were intermittent and yesterday he had lower extremity edema which has subsequently resolved. Echocardiogram 12/2020: EF of 50%, Mild MR, mild TR, mild [place], mild to moderate aortic regurgitation EKG sinus bradycardia. 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 No documented episodes of atrial fibrillation/flutter Chest x-ray: Cardiomegaly with mild pulmonary venous engorgement. No evidence of overt failure. COPD. WBC 11.3, hemoglobin 15.2. Electrolytes normal. BUN 26 and creatinine 1.14. Repeat BUN 31 and creatinine 1.44. Troponin 0.036, 0.034, 0.045. ProBNP 3470. Influenza A not detected. Influenza B not detected. Coronavirus PCR not detected. 02/01/2022 Patient examined this morning at the bedside. Patient denies chest pain or pressure. Denies SOB. He is on IV lasix. Creatinine today 1.64. PHYSICAL EXAM: VITAL SIGNS: Reviewed. GENERAL: Well-developed in no acute distress. NECK: Supple. No JVD or thyromegaly LUNGS: Respirations even and unlabored. Lungs essentially clear to auscultation bilaterally. HEART: Regular rate and rhythm. S1 and S2 heard. EXTREMITIES: Normal range of motion. No clubbing or cyanosis. Peripheral pulses intact. No lower extremity edema ASSESSMENT: Shortness of breath Acute diastolic heart failure History of atrial flutter status post successful cardioversion Mildly elevated troponins not consistent with acute coronary syndrome, most likely related to heart failure Acute kidney injury Bradycardia Dyslipidemia Hypertension PLAN: Await 2D echo results Discontinue IV lasix Begin oral lasix Patient may be discharged home today He is a follow up outpatient with Dr. Cameron on 02/04/2022 at 1430 Nurse practitioner note has been reviewed by physician. Signing provider agrees with the documented findings, assessment, and plan of care. Objective - Vital Signs Vital signs: Vital Signs Temp 98 F 02/01/22 08:35 Pulse 69 02/01/22 08:35 Resp 18 02/01/22 08:35 BP 136/61 02/01/22 08:35 Pulse Ox 97 02/01/22 08:35 FiO2 Intake & Output 01/31/22 02/01/22 02/01/22 18:59 06:59 18:59 Intake Total 658 780 118 Output Total 550 Balance 108 780 118 Weight 92.2 kg Intake: Oral 658 780 118 Output: Urine 550 Other: Voiding Method Toilet Toilet Toilet # Voids 2 - Labs CBC & Chem 7: 01/30/22 08:09 02/01/22 09:09 Labs: Abnormal Lab Results - Last 24 Hours (Table) 02/01/22 Range/Units 09:09 BUN 40 H (9-20) mg/dL Creatinine 1.64 H (0.66-1.25) mg/dL Glucose 135 H (74-99) mg/dL
--- NOTE | 2022-02-01 12:15 | CA ---
Transthoracic Echo Report Name: Mario Hampton Age: 86 Gender: M : 1935 Exam Date: 02/01/2022 08:38 Exam Location: [facility] Ht (in): 71 Wt (lb): 203 Ordering Physician: Stephanie Newton Attending/Referring Phys: [id number], Aman Civil Structural Designer Inna Valenzuela RDCS Procedure CPT: Indications: LVF Cardiac Hx: Technical Quality: Fair Contrast 1: Total Dose (mL): Contrast 2: Total Dose (mL): MEASUREMENTS (Male / Female) Normal Values 2D ECHO LV Diastolic Diameter PLAX 3.8 cm 4.2 - 5.9 / 3.9 - 5.3 cm LV Systolic Diameter PLAX 3.3 cm IVS Diastolic Thickness 1.8 cm 0.6 - 1.0 / 0.6 - 0.9 cm LVPW Diastolic Thickness 1.8 cm 0.6 - 1.0 / 0.6 - 0.9 cm LV Relative Wall Thickness 1.0 RV Internal Dim ED PLAX 3.1 cm LA Systolic Diameter LX 4.2 cm 3.0 - 4.0 / 2.7 - 3.8 cm LA Volume 85.0 cm??? 18 - 58 / 22 - 52 cm??? M-MODE Aortic Root Diameter MM 3.9 cm MV E Point Septal Separation 1.2 cm AV Cusp Separation MM 2.4 cm DOPPLER AV Peak Velocity 163.7 cm/s AV Peak Gradient 10.7 mmHg AV Mean Velocity 110.4 cm/s AV Mean Gradient 5.4 mmHg AV Velocity Time Integral 29.5 cm AI Peak Velocity 429.1 cm/s AI Peak Gradient 73.6 mmHg AI Pressure Half Time 1250.8 ms LVOT Peak Velocity 114.6 cm/s LVOT Peak Gradient 5.3 mmHg MV Area PHT 2.7 cm??? Mitral E Point Velocity 78.3 cm/s Mitral A Point Velocity 91.2 cm/s Mitral E to A Ratio 0.9 MV Deceleration Time 278.0 ms MV E' Velocity 4.2 cm/s Mitral E to MV E' Ratio 18.5 TR Peak Velocity 232.5 cm/s TR Peak Gradient 21.6 mmHg Right Ventricular Systolic Press 26.2 mmHg FINDINGS Left Ventricle Left ventricular ejection fraction is estimated at 55-60 %. Severe concentric left ventricular hypertrophy. Right Ventricle Normal right ventricular size and function. Right ventricular systolic pressure within normal limits. Right Atrium Normal right atrial size. Left Atrium Mildly increased left atrial diameter. Severely increased left atrial volume. Mildly increased left atrial area. No evidence for an atrial septal defect. Mitral Valve Moderate Mitral annular calcification. No mitral stenosis or prolapse. Mild mitral regurgitation Aortic Valve Trileaflet aortic valve. No aortic stenosis. Mild aortic regurgitation. Moderate aortic sclerosis Tricuspid Valve Structurally normal tricuspid valve. Mild tricuspid regurgitation. Pulmonic Valve Trace pulmonic regurgitation. Pericardium Normal pericardium. No pericardial effusion. Aorta Mild aortic dilatation at the level of the sinuses of valsalva 39 mm CONCLUSIONS 1. Normal left ventricle size and systolic function 2. Mild mitral, aortic and tricuspid regurgitation 3. No pericardial effusion. Previewed by: Dr. Renate Barkley MD (Electronically Signed) Final Date: 01 February 2022 12:14
--- NOTE | 2022-02-01 14:33 | P.PN ---
Progress Note - Text Progress Note Date: 02/01/22 Chief Complaint: Short of breath This is a very pleasant 86-year-old patient who follows with Dr. Juan J English. 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 On 02/06/2022 patient underwent DC cardioversion for atrial flutter by Dr. CARLA Cameron and was back in sinus rhythm. Patient did well the following day. Yesterday started noticing that he was getting short of breath. Did progress to this morning. Patient has some lower extremity edema which she's hasn't noticed himself. No chest pain or palpitation no cough no fever no chills. Patient is accompanied by his in the ER. Patient had a stress test about 5 months ago that was negative. Admitted with CHF exacerbation. IV Lasix. 01/31/2022: Patient making good urine. Breathing improving. Sitting up in a chair. Oral intake fair. at the bedside. IV Lasix 40 mg every 12. Creatinine up to 1.44. Consult nephrology. 02/01/2022: Breathing improved. Decreased edema. On oral Lasix 20 mg. Creatinine has gone up to 1.6. Hold p.m. dose of Lasix today. Repeat labs in the morning. Discussed with patient. Seen by supply aide today. Active Medications Acetaminophen (Acetaminophen Tab 325 Mg Tab) 650 mg PO Q6HR PRN PRN Reason: Mild Pain or Fever > 100.5 Amiodarone HCl (Amiodarone 200 Mg Tab) 200 mg PO DAILY [facility] Last Admin: 02/01/22 10:57 Dose: 200 mg Apixaban (Apixaban 2.5 Mg Tablet) 2.5 mg PO BID [facility]; Protocol Atorvastatin Calcium (Atorvastatin 20 Mg Tab) 20 mg PO HS [facility] Last Admin: 01/31/22 20:08 Dose: 20 mg Calcium Carbonate/Glycine (Calcium Carbonate 500 Mg Chewable) 1,000 mg PO Q4HR PRN PRN Reason: Dyspepsia Furosemide (Furosemide 20 Mg Tab) 20 mg PO DAILY [facility] Last Admin: 02/01/22 09:12 Dose: 20 mg Lactulose (Lactulose 20 Gm/30 Ml Cup) 20 gm PO DAILY PRN PRN Reason: Constipation Lorazepam (Lorazepam 0.5 Mg Tab) 0.5 mg PO Q6HR PRN PRN Reason: Anxiety Melatonin (Melatonin 3 Mg Tablet) 3 mg PO HS PRN PRN Reason: Insomnia Metoprolol Tartrate (Metoprolol Tartrate 25 Mg Tab) 25 mg PO BID [facility] Last Admin: 02/01/22 08:36 Dose: 25 mg Naloxone HCl (Naloxone 0.4 Mg/Ml 1 Ml Vial) 0.2 mg IV Q2M PRN PRN Reason: Opioid Reversal Ondansetron HCl (Ondansetron 4 Mg/2 Ml Vial) 4 mg IVP Q8HR PRN PRN Reason: Nausea And Vomiting Past medical history to include: Atrial flutter fibrillation cardioverted on 02/06/2022, hyperlipidemia, hypertension Social history: Patient smoked for over 70 years stopping about 2 weeks ago. Alcohol rarely. 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 . Family history: Reviewed, noncontributory to presentation Physical examination: VITAL SIGNS: 98, 53, 17, 1 with 3 x 66, 98% room air GENERAL: Sitting up in a chair, comfortable EYES: Pupils equal. Conjunctiva normal. HEENT: External appearance of nose and ears normal, oral cavity grossly normal. NECK: JVD not raised; masses not palpable. HEART: First and second heart sounds are normal; edema improved LUNGS: Respiratory rate normal; clear to auscultation. ABDOMEN: Soft, nontender, liver spleen not palpable, no masses palpable. PSYCH: Alert and oriented x3; mood and affect normal. MUSCULOSKELETAL:No Clubbing/cyanosis;muscles-grossly intact, OA INVESTIGATIONS, reviewed in the clinical context: 2-D echocardiogram: EF 55-60%. Severe concentric LVH. Moderate mitral annular calcification. Moderate aortic stenosis. 02/01/2022: Potassium 3.9 BUN 40 creatinine 1.64 Renal ultrasound: Bilateral renal cysts. UA: Unremarkable 01/31/2022: Potassium 4.2 BUN 31 creatinine 1.44 WBC 11.3 hemoglobin 15.2 platelets 151 potassium 5.1 BUN 26 creatinine 1.14 Troponin I 0.036, 0.034 ProBNP 3470 COVID 19/influenza type A/influenza diabetes: Not detected EKG tracing personally reviewed by me-no sinus rhythm, ST segment depression in inferolateral leads, rate 58 Chest x-ray film personally reviewed by me-cardiomegaly, some venous prominence. Hyperinflation Assessment and plan: -Acute congestive heart failure in a patient had DC cardioversion for atrial flutter fibrillation 3 days ago. Diastolic dysfunction EF 55-60%.: Better IV Lasix changed to by mouth Lasix. Follow with cardiology. -Moderate aortic stenosis Follow with cardiology -Acute kidney injury, likely from cardiorenal syndrome: Worsening Follow nephrology. UA and Renal ultrasound-unremarkable. 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 Nebulized Pulmicort -Hyperlipidemia Zocor -Positive troponin could be from underlying CHF. Patient has ST segment depression in inferolateral leads. Seen by cardiology. Currently not for any other intervention Discussed the patient. Informed about worsening renal function. Changed to by mouth Lasix 20 mg. Follow with nephrology.
[2022-02-01 16:08] VITALS: BMI 28.3
[2022-02-01] MEDS: ATORVASTATIN 20 MG TAB PO SCH (20:36)
[2022-02-01] MEDS: APIXABAN 2.5 MG TABLET PO SCH (20:36)
[2022-02-02] MEDS: AMIODARONE 200 MG TAB PO SCH (08:54)
[2022-02-02] MEDS: FUROSEMIDE 20 MG TAB PO SCH (08:54)
[2022-02-02] MEDS: APIXABAN 2.5 MG TABLET PO SCH (08:54)
[2022-02-02] MEDS: METOPROLOL TARTRATE 25 MG TAB PO SCH (08:54)
[2022-02-02 09:56] VITALS: RESP 18
--- NOTE | 2022-02-02 10:07 | P.PN ---
Subjective Progress Note Date: 02/02/22 HISTORY OF PRESENT ILLNESS: This is an 86-year-old male patient of Dr. Joe Cameron with past medical history of atrial fibrillation, atrial flutter, hypertension, dyslipidemia, history of tobacco use and dependence. Patient had cardioversion done initially in 2018 with good results. He states that recently he was mowing the lawn and developed shortness of breath and was found to be in atrial flutter 3-[address] CARLA Cameron scheduled him for another cardioversion which was performed on 01/27/2022. Patient converted to a sinus rhythm and was discharged home. His Lopressor dose prior to procedure was 50 mg 3 times daily and he was discharged home on 25 twice daily. Patient states he was doing well until evening when he developed shortness of breath along with palpitations which were intermittent and yesterday he had lower extremity edema which has subsequently resolved. Echocardiogram 12/2020: EF of 50%, Mild MR, mild TR, mild [place], mild to moderate aortic regurgitation EKG sinus bradycardia. alarm security or surveillance monitor sinus bradycardia. No documented episodes of atrial fibrillation/flutter Chest x-ray: Cardiomegaly with mild pulmonary venous engorgement. No evidence of overt failure. COPD. WBC 11.3, hemoglobin 15.2. Electrolytes normal. BUN 26 and creatinine 1.14. Repeat BUN 31 and creatinine 1.44. Troponin 0.036, 0.034, 0.045. ProBNP 3470. Influenza A not detected. Influenza B not detected. Coronavirus PCR not detected. 02/01/2022 Patient examined this morning at the bedside. Patient denies chest pain or pressure. Denies SOB. He is on IV lasix. Creatinine today 1.64. 02/02/2022 Patient examined this morning at bedside. Patient denies chest pain or pressure. He denies shortness of breath. He has been transitioned to oral Lasix. Telemetry reveals sinus mechanism. Kidney function from this morning is currently pending. Echocardiogram completed revealing ejection fraction 55-60% with no pericardial effusion. PHYSICAL EXAM: VITAL SIGNS: Reviewed. GENERAL: Well-developed in no acute distress. NECK: Supple. No JVD or thyromegaly LUNGS: Respirations even and unlabored. Lungs essentially clear to auscultation bilaterally. HEART: Regular rate and rhythm. S1 and S2 heard. EXTREMITIES: Normal range of motion. No clubbing or cyanosis. Peripheral pulses intact. No lower extremity edema ASSESSMENT: Shortness of breath Acute diastolic heart failure History of atrial flutter status post successful cardioversion Mildly elevated troponins not consistent with acute coronary syndrome, most likely related to heart failure Acute kidney injury Bradycardia Dyslipidemia Hypertension PLAN: Continue current cardiac medications Patient may be discharged home today He is to follow up outpatient with Dr. Cameron on 02/04/2022 at 1430 Nurse practitioner note has been reviewed by physician. Signing provider agrees with the documented findings, assessment, and plan of care. Objective - Vital Signs Vital signs: Vital Signs Temp 96 F L 02/02/22 08:00 Pulse 64 02/02/22 08:00 Resp 18 02/02/22 08:00 BP 134/74 02/02/22 08:00 Pulse Ox 96 02/02/22 08:00 FiO2 Intake & Output 02/01/22 02/02/22 02/02/22 18:59 06:59 18:59 Intake Total 354 120 Balance 354 120 Weight 92.2 kg Intake: Oral 354 120 Other: Voiding Method Toilet Toilet # Voids 1 - Labs CBC & Chem 7: 01/30/22 08:09 02/01/22 09:09
--- NOTE | 2022-02-02 11:13 | P.PN ---
Subjective Patient is seen for follow-up for acute kidney injury, cardiorenal associated with volume overload and diuresis. Serum creatinine had increased to 1.6 yesterday from 1.1 on initial admission. Diuretics were decreased and repeat labs are pending from today. Patient feels well with no complaints of chest pains or shortness of breath. He has had good urine output. Labs pending from today Objective - Vital Signs Vital signs: Vital Signs Temp 96 F L 02/02/22 08:00 Pulse 64 02/02/22 08:00 Resp 18 02/02/22 08:00 BP 134/74 02/02/22 08:00 Pulse Ox 96 02/02/22 08:00 FiO2 Intake & Output 02/01/22 02/02/22 02/02/22 18:59 06:59 18:59 Intake Total 354 120 Balance 354 120 Weight 92.2 kg Intake: Oral 354 120 Other: Voiding Method Toilet Toilet # Voids 1 - Exam Patient is awake, comfortable, no acute distress alert oriented 3 Examination of the heart S1 and S2 Examination lungs bilateral breath sounds are heard Abdomen is soft nontender Examination lower extremity shows no significant edema [employer] exam grossly intact - Labs CBC & Chem 7: 01/30/22 08:09 02/01/22 09:09 Assessment and Plan Assessment: 1. Acute kidney injury, nonoliguric, mostly cardiorenal. UA is completely benign and there is no evidence of obstruction noted on ultrasound of the kidneys. No nephrotoxic agents on board. 2. Atrial fibrillation with RVR status post cardioversion on 01/27/2022. Heart rate currently controlled and maintained on metoprolol 3. Hypertension currently controlled 4. CHF acute, most likely diastolic. Ejection fraction not available 5. Dyslipidemia Plan: Follow-up on labs from today. Patient can be discharged with plans to follow-up with nephrology as outpatient if his creatinine is not back to baseline. Otherwise he can follow-up for this PCP post discharge
[2022-02-02 11:30] LABS: Calcium 8.3 mg/dL (8.4-10.2)
[2022-02-02 12:13] VITALS: BP 154/79; PULSE 59; TEMP 97.5
== END 2022-02-02 14:43 | disposition home or self-care (01) | DRG 291 ==
LOC: EC 07:36 → 3SCARD 13:27
PROVIDERS: ADMIT Hospitalist; ATTEND Hospitalist
DX: I13.0 Hypertensive heart and chronic kidney disease with heart failure and stage 1 through stage 4 chronic kidney disease, or unspecified chronic kidney disease (principal); I50.31 Acute diastolic (congestive) heart failure; I48.92 Unspecified atrial flutter; N17.9 Acute kidney failure, unspecified; I24.9 Acute ischemic heart disease, unspecified; F17.210 Nicotine dependence, cigarettes, uncomplicated; R00.1 Bradycardia, unspecified; I08.3 Combined rheumatic disorders of mitral, aortic and tricuspid valves; E78.5 Hyperlipidemia, unspecified; F41.9 Anxiety disorder, unspecified; G47.00 Insomnia, unspecified; I48.91 Unspecified atrial fibrillation; J44.9 Chronic obstructive pulmonary disease, unspecified; K59.00 Constipation, unspecified; N18.9 Chronic kidney disease, unspecified; Z79.01 Long term (current) use of anticoagulants; Z79.899 Other long term (current) drug therapy; Z82.49 Family history of ischemic heart disease and other diseases of the circulatory system; Z20.822 Contact with and (suspected) exposure to COVID-19; Z88.8 Allergy status to other drugs, medicaments and biological substances
CPT/HCPCS: 36415; 71046; 76770; 80048; 80053; 81003; 83605; 83880; 84484; 85025; 85610; 85730; 87502; 87635; 93005; 93306; 94640; 94760; 96374; 99285

== ENCOUNTER 2023-07-28 08:31 | Inpatient (IN) | payer MEDICARE, OTHER ==
--- NOTE | 2023-07-28 08:57 | ED ---
General Adult HPI - General Chief complaint: Shortness of Breath Stated complaint: SOB Time Seen by Provider: 07/28/23 08:33 Source: patient, family Mode of arrival: ambulatory Limitations: no limitations - History of Present Illness Initial comments: Dictation was produced using [employer] dictation software. please excuse any grammatical, word or spelling errors. Chief Complaint: 87-year-old male past medical history of A-fib, dyslipidemia and hypertension presents to the ER for exertional dyspnea History of Present Illness: Patient is 87-year-old male he has chronic stable history of A-fib patient takes medications for A-fib he states that he has undergone couple rounds of cardioversion. Over the last several days he has been having worsening dyspnea. Patient [place] any cough runny nose or sore throat. No chest pain. Seems to be much more apparent when he tries to get up and perform his activities of daily living. Today he tried to take the trash out when all of a sudden he became dyspneic. Patient has history of cardiomyopathy. The ROS documented in this emergency department record has been reviewed and confirmed by me. Those systems with pertinent positive or negative responses have been documented in the HPI. All other systems are other negative and/or noncontributory. - Related Data Home Medications Medication Instructions Recorded Confirmed Metoprolol Tartrate [Lopressor] 25 mg PO DAILY 01/30/22 07/28/23 Apixaban [Eliquis] 5 mg PO BID-W/MEALS 07/28/23 07/28/23 Atorvastatin [Lipitor] 20 mg PO DAILY 07/28/23 07/28/23 Allergies Allergy/AdvReac Type Severity Reaction Status Date / Time lisinopril Allergy facial Verified 07/28/23 10:10 swelling, difficulty breathing. Review of Systems ROS Statement: Those systems with pertinent positive or pertinent negative responses have been documented in the HPI. ROS Other: All systems not noted in ROS Statement are negative. Past Medical History Past Medical History: Atrial Fibrillation, Atrial Flutter, Hyperlipidemia, Hypertension Additional Past Medical History / Comment(s): Cardioversion 01/26/22 and in 2018. History of Any Multi-Drug Resistant Organisms: None Reported Past Surgical History: Cholecystectomy, Tonsillectomy Past Anesthesia/Blood Transfusion Reactions: No Reported Reaction Past Psychological History: No Psychological Hx Reported Smoking Status: Former smoker Past Alcohol Use History: None Reported Past Drug Use History: None Reported - Past Family History Mother Family Medical History: Hypertension Father History Unknown: Yes Family Medical History: Hypertension General Exam - General Exam Comments Initial Comments: PHYSICAL EXAM: General Impression: Alert and oriented x3, not in acute distress HEENT: Normocephalic atraumatic, extra-ocular movements intact, pupils equal and reactive to light bilaterally, mucous membranes moist. Cardiovascular: Heart regular rate and rhythm Chest: Able to complete full sentences, no retractions, no tachypnea Abdomen: abdomen soft, non-tender, non-distended, no organomegaly Musculoskeletal: Pulses present and equal in all extremities, no peripheral edema Motor: no focal deficits noted Neurological: CN II-XII grossly intact, no focal motor or sensory deficits noted Skin: Intact with no visualized rashes Psych: Normal affect and mood Limitations: no limitations Course Vital Signs 07/28/23 07/28/23 07/28/23 08:33 09:00 10:13 Temperature 98.4 F Pulse Rate 77 100 95 Respiratory 24 18 Rate Blood Pressure 128/76 139/101 146/89 O2 Sat by Pulse 95 94 L 98 Oximetry Medical Decision Making - Medical Decision Making Was pt. sent in by a medical professional or institution (, PA, MACHINE FILLER, urgent care, hospital, or residential...) When possible be specific @ -No Did you speak to anyone other than the patient for history (EMS, parent, family, police, friend...)? What history was obtained from this source @ -No Did you review nursing and triage notes (agree or disagree)? Why? @ -I reviewed and agree with nursing and triage notes Were old charts reviewed (outside hosp., previous admission, EMS record, old EKG, old radiological studies, urgent care reports/EKG's, residential records)? Report findings @ -No old charts were reviewed Differential Diagnosis (chest pain, altered mental status, abdominal pain women, abdominal pain men, vaginal bleeding, musculoskeletal, weakness, fever, dyspnea, syncope, headache, dizziness, GI bleed, back pain, seizure, CVA, palpatations, mental health)? @ -Differential Dyspnea: Coronary syndrome, arrhythmia, tamponade, asthma, COPD, pulmonary embolism, pneumonia, pneumothorax, pulmonary effusion, anaphylaxis, diabetic ketoacidosis, flailed chest, pulmonary contusion, diaphragmatic rupture, anemia, neuromuscular, this is not meant to be an all-inclusive list. EKG interpreted by me (3pts min.). @ -My EKG interpretation: Ventricular rate 99, A-fib, cures 90, QTc 450. No MD prolongation, no QTC prolongation, no ST or T-wave changes noted. EKG compared to 2011 2021 showing no changes. Multiple PVCs X-rays interpreted by me (1pt min.). @ -Chest x-ray shows no acute processes CT interpreted by me (1pt min.). @ -None done U/S interpreted by me (1pt. min.). @ -None done What testing was considered but not performed or refused? (CT, X-rays, U/S, labs)? Why? @ -None What meds were considered but not given or refused? Why? @ -None Did you discuss the management of the patient with other professionals (professionals i.e. , PA, MACHINE FILLER, lab, RT, psych nurse, social welfare research worker, sports editor, teacher, strike warfare/missile systems officer, rifle case repairer)? Give summary @ -No Was smoking cessation discussed for >3mins.? @ -No Was critical care preformed (if so, how long)? @ -No Were there social determinants of health that impacted care today? How? (Homelessness, low income, unemployed, alcoholism, drug addiction, transportation, low edu. Level, literacy, decrease access to med. care, fdc, rehab)? @ -No Was there de-escalation of care discussed even if they declined (Discuss DNR or withdrawal of care, Hospice)? DNR status @ -No What co-morbidities impacted this encounter? (DM, HTN, Smoking, COPD, CAD, Ca ncer, CVA, ARF, Chemo, Hep., AIDS, mental health diagnosis, sleep apnea, morbid obesity)? @ -None Was patient admitted / discharged? Hospital course, mention meds given and route, prescriptions, significant lab abnormalities, going to OR and other pertinent info. @ -87-year-old male with multiple comorbidities presents to the emergency department for exertional dyspnea. Vital signs upon arrival are within acceptable limits. Laboratory evaluation obtained. CBC, coag panel metabolic panel within acceptable limits. Troponin 0.04. Patient has elevated troponin at baseline. BNP is 9450. Elevated from 2 years ago for comparison. Chest x- ray nonacute. Patient dyspneic. Patient has significant risk factors which include his cardiac comorbidities. Will be admitted observation consultation to cardiology. Case discussed with Dr. Fair for admission Undiagnosed new problem with uncertain prognosis? @ -No Drug Therapy requiring intensive monitoring for toxicity (Heparin, Nitro, Ins ulin, Cardizem)? @ -No Were any procedures done? @ -No Diagnosis/symptom? Acute, or Chronic, or Acute on Chronic? Uncomplicated (without systemic symptoms) or Complicated (systemic symptoms)? @ -Exertional dyspnea Side effects of treatment? @ -No Exacerbation, Progression, or Severe Exacerbation? @ -No Poses a threat to life or bodily function? How? (Chest pain, USA, PA, pneumonia, PE, COPD, DKA, ARF, appy, cholecystitis, CVA, Diverticulitis, Homicidal, Suicidal, threat to staff... and all critical care pts) @ -yes - Lab Data Result diagrams: 07/28/23 08:53 07/28/23 08:53 Lab Results 07/28/23 07/28/23 07/28/23 Range/Units 08:53 08:53 08:53 WBC 7.8 (3.8-10.6) k/uL RBC 4.41 (4.30-5.90) m/uL Hgb 13.7 (13.0-17.5) gm/dL Hct 41.8 (39.0-53.0) % MCV 94.8 (80.0-100.0) fL MCH 31.1 (25.0-35.0) pg MCHC 32.8 (31.0-37.0) g/dL RDW 13.2 (11.5-15.5) % Plt Count 184 (150-450) k/uL MPV 8.6 Neutrophils % 83 % Lymphocytes % 6 % Monocytes % 5 % Eosinophils % 3 % Basophils % 0 % Neutrophils # 6.5 (1.3-7.7) k/uL Lymphocytes # 0.5 L (1.0-4.8) k/uL Monocytes # 0.4 (0-1.0) k/uL Eosinophils # 0.3 (0-0.7) k/uL Basophils # 0.0 (0-0.2) k/uL PT 11.3 (10.0-12.5) sec INR 1.0 (<1.2) APTT 26.8 (22.0-30.0) sec Sodium 140 (137-145) mmol/L Potassium 4.7 (3.5-5.1) mmol/L Chloride 112 H (98-107) mmol/L Carbon Dioxide 21 L (22-30) mmol/L Anion Gap 7 mmol/L BUN 29 H (9-20) mg/dL Creatinine 1.43 H (0.66-1.25) mg/dL Est GFR (CKD-EPI)AfAm 52 (>60 ml/min/1.73 sqM) Est GFR (CKD-EPI)NonAf 45 (>60 ml/min/1.73 sqM) Glucose 131 H (74-99) mg/dL Calcium 8.9 (8.4-10.2) mg/dL Magnesium 1.9 (1.6-2.3) mg/dL Total Bilirubin 0.8 (0.2-1.3) mg/dL AST 40 (17-59) U/L ALT 29 (4-49) U/L Alkaline Phosphatase 94 (38-126) U/L Troponin I (0.000-0.034) ng/mL NT-Pro-B Natriuret Pep 9450 pg/mL Total Protein 6.1 L (6.3-8.2) g/dL Albumin 3.7 (3.5-5.0) g/dL 07/28/23 Range/Units 08:53 WBC (3.8-10.6) k/uL RBC (4.30-5.90) m/uL Hgb (13.0-17.5) gm/dL Hct (39.0-53.0) % MCV (80.0-100.0) fL MCH (25.0-35.0) pg MCHC (31.0-37.0) g/dL RDW (11.5-15.5) % Plt Count (150-450) k/uL MPV Neutrophils % % Lymphocytes % % Monocytes % % Eosinophils % % Basophils % % Neutrophils # (1.3-7.7) k/uL Lymphocytes # (1.0-4.8) k/uL Monocytes # (0-1.0) k/uL Eosinophils # (0-0.7) k/uL Basophils # (0-0.2) k/uL PT (10.0-12.5) sec INR (<1.2) APTT (22.0-30.0) sec Sodium (137-145) mmol/L Potassium (3.5-5.1) mmol/L Chloride (98-107) mmol/L Carbon Dioxide (22-30) mmol/L Anion Gap mmol/L BUN (9-20) mg/dL Creatinine (0.66-1.25) mg/dL Est GFR (CKD-EPI)AfAm (>60 ml/min/1.73 sqM) Est GFR (CKD-EPI)NonAf (>60 ml/min/1.73 sqM) Glucose (74-99) mg/dL Calcium (8.4-10.2) mg/dL Magnesium (1.6-2.3) mg/dL Total Bilirubin (0.2-1.3) mg/dL AST (17-59) U/L ALT (4-49) U/L Alkaline Phosphatase (38-126) U/L Troponin I 0.040 H* (0.000-0.034) ng/mL NT-Pro-B Natriuret Pep pg/mL Total Protein (6.3-8.2) g/dL Albumin (3.5-5.0) g/dL Disposition Clinical Impression: Heart failure Disposition: ADMITTED IP TO THIS [facility] Condition: Fair Referrals: Juan J English MD [Primary Care Provider] - 1-2 days Decision Time: 11:08
[2023-07-28 09:07] LABS: Basophils % (A) 0 %; Eosinophils # (A) 0.3 k/uL (0-0.7); Eosinophils % (A) 3 %; HCT 41.8 % (39.0-53.0); HGB 13.7 gm/dL (13.0-17.5); Lymphocytes # (A) 0.5 k/uL (1.0-4.8); Lymphocytes % (A) 6 %; MCH 31.1 pg (25.0-35.0); MCHC 32.8 g/dL (31.0-37.0); MCV 94.8 fL (80.0-100.0); Mean Platelet Volume 8.6; Monocytes # (A) 0.4 k/uL (0-1.0); Monocytes % (A) 5 %; Neutrophils # (A) 6.5 k/uL (1.3-7.7); Neutrophils % (A) 83 %; Platelet Count 184 k/uL (150-450); RBC 4.41 m/uL (4.30-5.90); RDW 13.2 % (11.5-15.5); WBC 7.8 k/uL (3.8-10.6)
[2023-07-28 09:48] LABS: ALT 29 U/L (4-49); AST 40 U/L (17-59); African American GFR (CKD) 52 (>60 ml/min/1.73 sqM); Albumin 3.7 g/dL (3.5-5.0); Alkaline Phosphatase 94 U/L (38-126); Anion Gap 7 mmol/L; Blood Urea Nitrogen 29 mg/dL (9-20); Calcium 8.9 mg/dL (8.4-10.2); Carbon Dioxide 21 mmol/L (22-30); Chloride 112 mmol/L (98-107); Glucose 131 mg/dL (74-99); Magnesium 1.9 mg/dL (1.6-2.3); Non-African American GFR(CKD) 45 (>60 ml/min/1.73 sqM); Potassium 4.7 mmol/L (3.5-5.1); Sodium 140 mmol/L (137-145); Total Bilirubin 0.8 mg/dL (0.2-1.3); Total Protein 6.1 g/dL (6.3-8.2)
[2023-07-28 09:49] LABS: Partial Thromboplastin Time 26.8 sec (22.0-30.0); Prothrombin Time 11.3 sec (10.0-12.5)
--- NOTE | 2023-07-28 09:51 | XR ---
EXAMINATION TYPE: XR chest 2V DATE OF EXAM: 07/28/2023 COMPARISON: 01/30/2022 TECHNIQUE: PA and lateral views submitted. HISTORY: Shortness of breath. FINDINGS: The lungs are clear and there is no pneumothorax, pleural effusion, or focal pneumonia. The heart is mildly enlarged but no overt failure. Osseous structures demonstrate hypertrophic and degenerative c hanges of the spine. Ectasia of the aorta. Arthropathy of the shoulders. Coarsened interstitium may reflect chronic inters titial lung disease. Similar prior exam. IMPRESSION: 1. No acute process.
[2023-07-28 09:56] LABS: NT-Pro-B-Type Natriuretic Pept 9450 pg/mL
[2023-07-28] MEDS: FUROSEMIDE 10 MG/ML 4 ML VIAL IV STA (12:20)
[2023-07-28] MEDS: ASPIRIN 325 MG TAB PO STA (12:20)
[2023-07-28] MEDS ORDERED: ONDANSETRON 4 MG/2 ML VIAL IVP PRN (14:23)
[2023-07-28] MEDS ORDERED: ALPRAZolam 0.25 MG TAB PO PRN (14:23)
[2023-07-28] MEDS ORDERED: MELATONIN 3 MG TABLET PO PRN (14:23)
[2023-07-28] MEDS ORDERED: LACTULOSE 20 GM/30 ML CUP PO PRN (14:23)
[2023-07-28] MEDS ORDERED: CALCIUM CARBONATE 500 MG CHEWABLE PO PRN (14:23)
[2023-07-28] MEDS ORDERED: ACETAMINOPHEN TAB 325 MG TAB PO PRN (14:23)
[2023-07-28] MEDS ORDERED: NALOXONE 0.4 MG/ML 1 ML VIAL IV PRN (14:23)
--- NOTE | 2023-07-28 14:24 | P.HPIM ---
History of Present Illness H&P Date: 07/28/23 Chief Complaint: Short of breath This is a very pleasant 87-year-old patient who follows with Dr. Juan J English. Health Program Analyst Dr. CARLA Cameron. January/2022 patient underwent DC cardioversion for atrial flutter by Dr. CARLA Cameron and was back in sinus rhythm. CHF with diastolic dysfunction Patient now presents for short of breath for close to 3 weeks. Has some lower extremity edema. Always uses 2 pillows. Short of breath worse with activity. No fever no chills no cough. No chest pain. Patient sought in March Dr. CARLA Cameron. Apparently was in sinus rhythm. Was told everything is doing fine. Patient's present at the bedside. Review of systems: GEN.: Tired EYES: None HEENT: None NECK: None RESPIRATORY: As above CARDIOVASCULAR: As above GASTROINTESTINAL: None GENITOURINARY: None MUSCULOSKELETAL: None LYMPHATICS: None HEMATOLOGICAL: None PSYCHIATRY: None NEUROLOGICAL: None Past medical history to include: Atrial flutter fibrillation cardioverted on 02/06/2022, hyperlipidemia, hypertension. CHF diastolic dysfunction Social history: smoked for over 70 years stopping about 2021. Alcohol rarely. 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 . Physical examination: VITAL SIGNS: 98.4, 77, 24, 128 x 76, 95% room air GENERAL: BMI 30.4. Sitting up in the recliner not in distress EYES: Pupils equal. Conjunctiva normal. HEENT: External appearance of nose and ears normal, oral cavity grossly normal. NECK: JVD raised; masses not palpable. HEART: First and second heart sounds are normal; edema present. LUNGS: Respiratory rate normal; creased breath sounds ABDOMEN: Soft, nontender, liver spleen not palpable, no masses palpable. PSYCH: Alert and oriented x3; mood and affect normal. MUSCULOSKELETAL:No Clubbing/cyanosis;muscles-grossly intact, OA NEUROLOGICAL: Cranial nerves grossly intact; no facial asymmetry, power and sensation grossly intact. LYMPHATICS: No lymph nodes palpable in the axilla and neck INVESTIGATIONS, reviewed in the clinical context: July 27: White count 7.8 hemoglobin 13.7 platelets 184 potassium 4.7 BUN 29 creatinine 1.43 EKG tracing personally reviewed by me-atrial flutter fibrillation rate 99 Chest x-ray film personally reviewed by me-cardiomegaly. Some prominent interstitium Previous labs: January 2022: BUN 37 creatinine 1.47 2-D echocardiogram: [January 2022] EF 55-60%. Severe concentric LVH. Moderate mitral annular calcification. Moderate aortic stenosis. Renal ultrasound [January 2022]: Bilateral renal cysts. Assessment and plan: -Acute on chronic congestive heart failure i from diastolic dysfunction EF 55- 60%. IV Lasix 60 mg every 8. Strict I's and O's. Fluid restriction 2000 cc a day. 2D echo. Cardiology consulted -Moderate aortic stenosis Repeat 2D echo. -Chronic kidney disease stage III likely nephrosclerosis Renal ultrasound [January 2022]-unremarkable. -Paroxysmal atrial flutter fibrillation that was DC cardioverted 2021..: Currently in atrial flutter fibrillation Eliquis. Change Lopressor to 12.5 twice daily -COPD in previous smoker DuoNeb -Hyperlipidemia Zocor -Troponinemia in the setting of chronic kidney disease. No ACS -Full code Care was discussed with the patient at the bedside. Questions answered. Past Medical History Past Medical History: Atrial Fibrillation, Atrial Flutter, Hyperlipidemia, Hypertension Additional Past Medical History / Comment(s): Cardioversion 01/26/22 and in 2018. History of Any Multi-Drug Resistant Organisms: None Reported Past Surgical History: Cholecystectomy, Tonsillectomy Past Anesthesia/Blood Transfusion Reactions: No Reported Reaction Past Psychological History: No Psychological Hx Reported Smoking Status: Former smoker Past Alcohol Use History: None Reported Past Drug Use History: None Reported - Past Family History Mother Family Medical History: Hypertension Father History Unknown: Yes Family Medical History: Hypertension Medications and Allergies Home Medications Medication Instructions Recorded Confirmed Type Metoprolol Tartrate [Lopressor] 25 mg PO DAILY 01/30/22 07/28/23 History Apixaban [Eliquis] 5 mg PO BID-W/MEALS 07/28/23 07/28/23 History Atorvastatin [Lipitor] 20 mg PO DAILY 07/28/23 07/28/23 History Allergies Allergy/AdvReac Type Severity Reaction Status Date / Time lisinopril Allergy facial Verified 07/28/23 10:10 swelling, difficulty breathing. Physical Exam Vitals: Vital Signs Temp Pulse Resp BP Pulse Ox 07/28/23 14:03 82 20 134/96 98 07/28/23 12:17 87 18 130/99 97 07/28/23 10:13 95 18 146/89 98 07/28/23 09:00 100 139/101 94 L 07/28/23 08:33 98.4 F 77 24 128/76 95 Intake and Output 07/27/23 07/28/23 07/28/23 22:59 06:59 14:59 Other: Weight 98.883 kg Results CBC & Chem 7: 07/28/23 08:53 07/28/23 08:53 Labs: Abnormal Lab Results - Last 24 Hours (Table) 07/28/23 07/28/23 07/28/23 Range/Units 08:53 08:53 08:53 Lymphocytes # 0.5 L (1.0-4.8) k/uL Chloride 112 H (98-107) mmol/L Carbon Dioxide 21 L (22-30) mmol/L BUN 29 H (9-20) mg/dL Creatinine 1.43 H (0.66-1.25) mg/dL Glucose 131 H (74-99) mg/dL Troponin I 0.040 H* (0.000-0.034) ng/mL Total Protein 6.1 L (6.3-8.2) g/dL
[2023-07-28] MEDS: IPRATROPIUM-ALBUTEROL 3 ML NEB INHALATION SCH (15:46)
[2023-07-28] MEDS: FUROSEMIDE 10 MG/ML 10 ML VIAL IV SCH (17:10)
[2023-07-28] MEDS: APIXABAN 5 MG TAB PO SCH (17:10)
[2023-07-28] MEDS: BUDESONIDE 1 MG/2 ML NEBU INHALATION SCH (19:37)
[2023-07-28] MEDS: METOPROLOL TARTRATE 25 MG TAB PO SCH (20:21)
[2023-07-28] MEDS: METOPROLOL TARTRATE 50 MG TAB PO STA (21:15)
[2023-07-29] MEDS: ATORVASTATIN 20 MG TAB PO SCH (08:13)
[2023-07-29] MEDS: METOPROLOL TARTRATE 25 MG TAB PO SCH (08:13)
[2023-07-29] MEDS ORDERED: ASPIRIN 325 MG TAB PO SCH (09:00)
--- NOTE | 2023-07-29 11:22 | CA ---
Transthoracic Echo Report Name: Mario Hampton Age: 87 Gender: M : 1935 Exam Date: 07/28/2023 14:54 Exam Location: [place] [facility] Ht (in): 71 Wt (lb): 218 Ordering Physician: Martir Fair MD Attending/Referring Phys: Manager Transit Inna Valenzuela RDCS Procedure CPT: Indications: chf Cardiac Hx: Technical Quality: Fair Contrast 1: Total Dose (mL): Contrast 2: Total Dose (mL): MEASUREMENTS (Male / Female) Normal Values 2D ECHO LV Diastolic Diameter PLAX 4.3 cm 4.2 - 5.9 / 3.9 - 5.3 cm LV Systolic Diameter PLAX 4.0 cm IVS Diastolic Thickness 1.7 cm 0.6 - 1.0 / 0.6 - 0.9 cm LVPW Diastolic Thickness 1.5 cm 0.6 - 1.0 / 0.6 - 0.9 cm LV Relative Wall Thickness 0.8 RV Internal Dim ED PLAX 3.8 cm LVOT Diameter 2.7 cm LA Systolic Diameter LX 4.4 cm 3.0 - 4.0 / 2.7 - 3.8 cm LV Diastolic Volume MOD 4C 149.5 cm??? LV Systolic Volume MOD 4C 114.8 cm??? LV Ejection Fraction MOD 4C 23.2 % LV Cardiac Index MOD 4C 1479.7 cm???/min???m??? LV Diastolic Length 4C 7.6 cm LV Systolic Length 4C 7.1 cm LV Diastolic Volume MOD 2C 135.8 cm??? LV Systolic Volume MOD 2C 103.1 cm??? LV Ejection Fraction MOD 2C 24.1 % LV Cardiac Index MOD 2C 1394.9 cm???/min???m??? LV Diastolic Length 2C 8.5 cm LV Systolic Length 2C 7.9 cm LA Volume 97.8 cm??? 18 - 58 / 22 - 52 cm??? LA Volume Index 43.5 cm???/m??? 16 - 28 cm???/m??? M-MODE Aortic Root Diameter MM 3.7 cm MV E Point Septal Separation 1.0 cm AV Cusp Separation MM 1.8 cm DOPPLER AV Peak Velocity 126.8 cm/s AV Peak Gradient 6.4 mmHg AV Mean Velocity 71.8 cm/s AV Mean Gradient 2.4 mmHg AV Velocity Time Integral 18.6 cm AI Peak Velocity 434.7 cm/s AI Peak Gradient 75.6 mmHg AI Pressure Half Time 865.7 ms LVOT Peak Velocity 87.1 cm/s LVOT Peak Gradient 3.0 mmHg AV Area Cont Eq pk 4.0 cm??? MV Area PHT 4.9 cm??? MV Deceleration Time 130.0 ms TR Peak Velocity 260.9 cm/s TR Peak Gradient 27.2 mmHg Right Ventricular Systolic Press 34.0 mmHg FINDINGS Left Ventricle Left ventricular ejection fraction is estimated at 20-25 %. Left ventricular cavity size normal. Severely increased septal wall thickness. Severely reduced global left ventricular systolic function. Right Ventricle Mild right ventricular dilatation. Right ventricular systolic pressure within normal limits. Right Atrium Normal right atrial size. No right atrial thrombus or mass seen. Left Atrium Mildly increased left atrial diameter. Severely increased left atrial volume. Mildly increased left atrial area. Mitral Valve Mitral valve thickened. Mitral annular calcification. Mild to moderate mitral regurgitation. Aortic Valve Aortic valve sclerosis. Mild aortic regurgitation. No aortic stenosis. Tricuspid Valve Structurally normal tricuspid valve. Pulmonic Valve Structurally normal pulmonic valve. Mild pulmonic regurgitation. Pericardium No pericardial effusion. No pleural effusion. Aorta Normal size aortic root and proximal ascending aorta. CONCLUSIONS Severely impaired LV function was EF between 20-25% with global hypokinesia Aortic sclerosis with mild aortic insufficiency Thickened mitral valve leaflets with mild to moderate MR Previewed by: Dr. Herson Reddy MD (Electronically Signed) Final Date: 29 Jul 2023 11:21
--- NOTE | 2023-07-29 12:53 | P.PN ---
Progress Note - Text Progress Note Date: 07/29/23 Chief Complaint: Short of breath This is a very pleasant 87-year-old patient who follows with Dr. Juan J English. Orthopaedic Doctor Dr. CARLA Cameron. January/2022 patient underwent DC cardioversion for atrial flutter by Dr. CARLA Cameron and was back in sinus rhythm. CHF with boris stolic dysfunction Patient now presents for short of breath for close to 3 weeks. Has some lower extremity edema. Always uses 2 pillows. Short of breath worse with activity. No fever no chills no cough. No chest pain. Patient sought in March Dr. CARLA Cameron. Apparently was in sinus rhythm. Was told everything is doing fine. Patient's present at the bedside. July 29, 2023: Getting IV Lasix 60 mg every 8. Good urine output. Not actively documented. Some improvement in breathing. Some decrease in edema. Has been up to the bathroom. Eating fair. Active Medications Acetaminophen (Acetaminophen Tab 325 Mg Tab) 650 mg PO Q6HR PRN PRN Reason: Mild Pain or Fever > 100.5 Albuterol/Ipratropium (Ipratropium-Albuterol 3 Ml Neb) 3 ml INHALATION RT-TID [facility] Last Admin: 07/29/23 09:45 Dose: 3 ml Alprazolam (Alprazolam 0.25 Mg Tab) 0.25 mg PO Q6HR PRN PRN Reason: Anxiety Apixaban (Apixaban 5 Mg Tab) 5 mg PO BID-W/MEALS [facility]; Protocol Last Admin: 07/29/23 06:42 Dose: 5 mg Atorvastatin Calcium (Atorvastatin 20 Mg Tab) 20 mg PO DAILY [facility] Last Admin: 07/29/23 08:13 Dose: 20 mg Budesonide (Budesonide 1 Mg/2 Ml Nebu) 1 mg INHALATION RT-BID [facility] Last Admin: 07/29/23 09:44 Dose: 1 mg Calcium Carbonate/Glycine (Calcium Carbonate 500 Mg Chewable) 1,000 mg PO Q4HR PRN PRN Reason: Dyspepsia Furosemide (Furosemide 10 Mg/Ml 10 Ml Vial) 60 mg IV Q8H [facility] Last Admin: 07/29/23 09:03 Dose: 60 mg Lactulose (Lactulose 20 Gm/30 Ml Cup) 20 gm PO DAILY PRN PRN Reason: Constipation Melatonin (Melatonin 3 Mg Tablet) 3 mg PO HS PRN PRN Reason: Insomnia Metoprolol Tartrate (Metoprolol Tartrate 25 Mg Tab) 75 mg PO BID [facility] Last Admin: 07/29/23 08:13 Dose: 75 mg Naloxone HCl (Naloxone 0.4 Mg/Ml 1 Ml Vial) 0.2 mg IV Q2M PRN PRN Reason: Opioid Reversal Ondansetron HCl (Ondansetron 4 Mg/2 Ml Vial) 4 mg IVP Q8HR PRN PRN Reason: Nausea And Vomiting Past medical history to include: Atrial flutter fibrillation cardioverted on 02/06/2022, hyperlipidemia, hypertension. CHF diastolic dysfunction Social history: smoked for over 70 years stopping about 2021. Alcohol rarely. 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 . Physical examination: VITAL SIGNS: 97.5, 94, 16, 107/69, 95% room air GENERAL: Reclining, looking better s EYES: Pupils equal. Conjunctiva normal. HEENT: External appearance of nose and ears normal, oral cavity grossly normal. NECK: JVD raised; masses not palpable. HEART: First and second heart sounds are normal; decreased edema LUNGS: Respiratory rate normal; creased breath sounds ABDOMEN: Soft, nontender, liver spleen not palpable, no masses palpable. PSYCH: Alert and oriented x3; mood and affect normal. MUSCULOSKELETAL:No Clubbing/cyanosis;muscles-grossly intact, OA INVESTIGATIONS, reviewed in the clinical context: 2D echocardiogram [July 28, 2023: EF 20-25%. Global hypokinesia. Mild to moderate mitral regurgitation. July 27: White count 7.8 hemoglobin 13.7 platelets 184 potassium 4.7 BUN 29 creatinine 1.43 EKG tracing personally reviewed by me-atrial flutter fibrillation rate 99 Chest x-ray film personally reviewed by me-cardiomegaly. Some prominent interstitium Previous labs: January 2022: BUN 37 creatinine 1.47 2-D echocardiogram: [January 2022] EF 55-60%. Severe concentric LVH. Moderate mitral annular calcification. Moderate aortic stenosis. Renal ultrasound [January 2022]: Bilateral renal cysts. Assessment and plan: -Acute on chronic congestive heart failure i from systolic dysfunction EF 5 20- 25% IV Lasix 60 mg every 8. Strict I's and O's. Fluid restriction 2000 cc a day. Add Aldactone 25 mg daily Cardiology following -Moderate mitral regurgitation. -Chronic kidney disease stage III likely nephrosclerosis Renal ultrasound [January 2022]-unremarkable. -Paroxysmal atrial flutter fibrillation that was DC cardioverted 2021..: Currently in atrial flutter fibrillation Eliquis. Lopressor 25 mg twice daily -COPD in previous smoker DuoNeb -Hyperlipidemia Lipitor -Troponinemia in the setting of chronic kidney disease. No ACS -Full code Cussed with patient. Continue with IV Lasix. I's and O. Follow labs. Past Medical History Past Medical History: Atrial Fibrillation, Atrial Flutter, Hyperlipidemia, Hypertension Additional Past Medical History / Comment(s): Cardioversion 01/26/22 and in 2018. History of Any Multi-Drug Resistant Organisms: None Reported Past Surgical History: Cholecystectomy, Tonsillectomy Past Anesthesia/Blood Transfusion Reactions: No Reported Reaction Past Psychological History: No Psychological Hx Reported Smoking Status: Former smoker Past Alcohol Use History: None Reported Past Drug Use History: None Reported
[2023-07-29 13:25] LABS: African American GFR (CKD) 37 (>60 ml/min/1.73 sqM); Anion Gap 8 mmol/L; Blood Urea Nitrogen 42 mg/dL (9-20); Calcium 9.4 mg/dL (8.4-10.2); Carbon Dioxide 25 mmol/L (22-30); Chloride 107 mmol/L (98-107); Glucose 102 mg/dL (74-99); Non-African American GFR(CKD) 32 (>60 ml/min/1.73 sqM); Potassium 4.5 mmol/L (3.5-5.1); Sodium 140 mmol/L (137-145)
[2023-07-29] MEDS: SPIRONOLACTONE 25 MG TAB PO SCH (13:43)
[2023-07-29 15:09] VITALS: BMI 30.6
--- NOTE | 2023-07-29 15:31 | P.CRDCN ---
History of Present Illness Consult date: 07/29/23 Reason for Consult (text): cardiac History of present illness: History of present illness: This is an 87-year-old male patient of Dr. CARLA Cameron'zafar with past medical history of hypertension, hyperlipidemia, probable some component of sick sinus syndrome, paroxysmal atrial fibrillation. He has had previous electrocardioversion's in January 2022 and 2017. Patient states he has had some shortness of breath for the last couple weeks along with a little bit of lower extremity edema which is better now. He and his give history that he was on amiodarone and taken off this at his March appointment with Dr. Cameron. Patient has been in atrial fibrillation rate controlled. He has been treated for CHF with Lasix 60 mg every 8 hours and Aldactone 25 mg was started. His home dose of metoprolol 25 mg daily was increased to 75 mg twice daily. Patient states he has not missed any doses of his Eliquis. Discussed in detail that his symptoms are most likely due to atrial fibrillation and plan is to optimize Eliquis and try to convert to sinus rhythm. Patient will be started on amiodarone and plan for electrocardioversion tomorrow afternoon. Patient is agreement to move forward with these plans. EKG atrial fibrillation at 99 bpm and 116 bpm Chest x-ray: No acute process BUN 42 creatinine 1.89. Troponin 0.04. proBNP 9450. Home cardiac medications: Eliquis 5 mg twice daily, atorvastatin 20 mg daily, Lopressor 25 mg daily Echocardiogram reveals EF of 20 to 25%, aortic sclerosis with AI. Mild to moderate MR. Lexiscan Cardiolite stress test 08/25/2021 performed in the office revealed unremarkable Lexiscan stress test by EKG criteria. Normal MPI with normal EF without stress-induced ischemia. Echocardiogram that was done in the office on 12/2020 revealed EF of 50%. Mild MR, mild TR, mild to moderate AR. PASP 34 mmHg. Mild pulmonary regurgitation. Review Of Systems: At the time of my exam: CONSTITUTIONAL: Denies fever or chills. HEENT: Denies blurred vision, vision changes, or eye pain. Denies hemoptysis CARDIOVASCULAR: Denies chest pain. Denies orthopnea. Denies PND. Denies palpitations RESPIRATORY: Denies shortness of breath. GASTROINTESTINAL: Denies abdominal pain. Denies nausea or vomiting. HEMATOLOGIC: Denies bleeding disorders. GENITOURINARY: Denies any blood in urine. SKIN: Denies pruitis. Denies rash. Physical examination: Gen: This is an 87-year-old male in no acute distress VS: reviewed, blood pressure 107/69, heart rate 94, pulse ox 94% on room air. HEENT: Head is atraumatic, normocephalic. Pupils equal, round. Sclerae is anicteric. NECK: Supple. No JVD. LUNGS: Clear to auscultation. No wheezes or rhonchi. No intercostal retractions. HEART: Irregular rate and rhythm. No murmur. ABDOMEN: Soft No tenderness. EXTREMITIES: No pedal edema. No calf tenderness. NEUROLOGICAL: Patient is awake, alert and oriented x3. Assessment: Acute systolic heart failure Cardiomyopathy Paroxysmal atrial fibrillation Hypertension Hyperlipidemia Plan: Resume patient's home cardiac medications Decrease frequency of Lasix 60 mg to daily Continue Aldactone and increase dose of Lopressor 75 mg twice daily Start patient on amiodarone bolus followed by drip per protocol Continue Eliquis Cardioversion scheduled for tomorrow afternoon Patient may have light breakfast in the morning and n.p.o. following breakfast. Further recommendations to follow based upon clinical course Thank you kindly for this consultation. Nurse practitioner note has been reviewed, I agree with documented findings and plan of care. Patient was seen and examined. Past Medical History Past Medical History: Atrial Fibrillation, Atrial Flutter, Hyperlipidemia, Hypertension Additional Past Medical History / Comment(s): Cardioversion 01/26/22 and in . History of Any Multi-Drug Resistant Organisms: None Reported Past Surgical History: Cholecystectomy, Tonsillectomy Past Anesthesia/Blood Transfusion Reactions: No Reported Reaction Past Psychological History: No Psychological Hx Reported Smoking Status: Former smoker Past Alcohol Use History: None Reported Additional Past Alcohol Use History / Comment(s): quit smoking 2 years ago, hx of 2 packs/week., started smoking as teenager Past Drug Use History: None Reported - Past Family History Mother Family Medical History: Hypertension Father History Unknown: Yes Family Medical History: Hypertension Medications and Allergies Home Medications Medication Instructions Recorded Confirmed Type Metoprolol Tartrate [Lopressor] 25 mg PO DAILY 01/30/22 07/28/23 History Apixaban [Eliquis] 5 mg PO BID-W/MEALS 07/28/23 07/28/23 History Atorvastatin [Lipitor] 20 mg PO DAILY 07/28/23 07/28/23 History Allergies Allergy/AdvReac Type Severity Reaction Status Date / Time lisinopril Allergy facial Verified 07/28/23 10:10 swelling, difficulty breathing. Physical Exam Vitals: Vital Signs Temp Pulse Pulse Resp BP BP Pulse Ox 07/29/23 11:58 94 16 107/69 95 07/29/23 10:01 64 07/29/23 09:45 60 07/29/23 08:13 97.5 F L 96 16 130/83 96 07/29/23 04:00 98.0 F 61 18 134/77 98 07/29/23 02:00 18 07/29/23 00:00 98.2 F 63 18 115/74 97 07/28/23 23:26 98.5 F 79 20 125/97 97 07/28/23 21:58 81 07/28/23 21:50 106 H 20 114/89 94 L 07/28/23 21:16 129 H 18 114/89 98 07/28/23 20:18 121 H 20 145/82 95 07/28/23 19:43 112 H 07/28/23 19:38 114 H 07/28/23 18:55 114 H 20 114/96 96 07/28/23 17:07 90 20 133/95 94 L 07/28/23 16:41 96 20 104/93 95 07/28/23 15:55 85 07/28/23 15:48 90 Intake and Output 07/28/23 07/29/23 07/29/23 22:59 06:59 14:59 Intake Total 600 Output Total 500 250 Balance -500 350 Intake: Oral 600 Output: Urine 500 250 Other: Voiding Method Toilet Toilet # Voids 1 Weight 99.5 kg 99.5 kg Results 07/28/23 08:53 07/29/23 12:20 Comprehensive Metabolic Panel 07/29/23 Range/Units 12:20 Sodium 140 (137-145) mmol/L Potassium 4.5 (3.5-5.1) mmol/L Chloride 107 (98-107) mmol/L Carbon Dioxide 25 (22-30) mmol/L BUN 42 H (9-20) mg/dL Creatinine 1.89 H (0.66-1.25) mg/dL Glucose 102 H (74-99) mg/dL Calcium 9.4 (8.4-10.2) mg/dL Current Medications Generic Name Dose Route Start Last Admin Trade Name Freq PRN Reason Stop Dose Admin Acetaminophen 650 mg 07/28/23 14:23 Acetaminophen Tab 325 Mg Tab PO Q6HR PRN Mild Pain or Fever > 100.5 Albuterol/Ipratropium 3 ml 07/28/23 14:22 07/29/23 13:04 Ipratropium-Albuterol 3 Ml Neb INHALATION Not Given RT-TID [facility]AN Alprazolam 0.25 mg 07/28/23 14:23 Alprazolam 0.25 Mg Tab PO Q6HR PRN Anxiety Apixaban 5 mg 07/28/23 17:30 07/29/23 06:42 Apixaban 5 Mg Tab PO 5 mg BID-W/MEALS [facility] Administration Protocol Atorvastatin Calcium 20 mg 07/29/23 09:00 07/29/23 08:13 Atorvastatin 20 Mg Tab PO 20 mg DAILY [facility] Administration Budesonide 1 mg 07/28/23 20:00 07/29/23 09:44 Budesonide 1 Mg/2 Ml Nebu INHALATION 1 mg RT-BID [facility] Administration Calcium Carbonate/Glycine 1,000 mg 07/28/23 14:23 Calcium Carbonate 500 Mg Chewable PO Q4HR PRN Dyspepsia Furosemide 60 mg 07/28/23 18:00 07/29/23 09:03 Furosemide 10 Mg/Ml 10 Ml Vial IV 60 mg Q8H [facility] Administration Lactulose 20 gm 07/28/23 14:23 Lactulose 20 Gm/30 Ml Cup PO DAILY PRN Constipation Melatonin 3 mg 07/28/23 14:23 Melatonin 3 Mg Tablet PO HS PRN Insomnia Metoprolol Tartrate 75 mg 07/29/23 09:00 07/29/23 08:13 Metoprolol Tartrate 25 Mg Tab PO 75 mg BID [facility]AN Administration Naloxone HCl 0.2 mg 07/28/23 14:23 Naloxone 0.4 Mg/Ml 1 Ml Vial IV Q2M PRN Opioid Reversal Ondansetron HCl 4 mg 07/28/23 14:23 Ondansetron 4 Mg/2 Ml Vial IVP Q8HR PRN Nausea And Vomiting Spironolactone 25 mg 07/29/23 13:00 07/29/23 13:43 Spironolactone 25 Mg Tab PO 25 mg DAILY [facility]AN Administration Intake and Output 07/28/23 07/29/23 07/29/23 22:59 06:59 14:59 Intake Total 600 Output Total 500 250 Balance -500 350 Intake: Oral 600 Output: Urine 500 250 Other: Voiding Method Toilet Toilet # Voids 1 Weight 99.5 kg 99.5 kg Patient Weight 07/30/23 06:59 Weight 99.5 kg 07/28/23 08:53 07/29/23 12:20
[2023-07-29] MEDS: DEXTROSE 5% IN WATER 100 ML with AMIODARONE 150 MG IV ONE (15:36)
[2023-07-29] MEDS: AMIODARONE 360 MG in DEXTROSE 5% IN WATER 200 ML IV ONE (15:50)
[2023-07-29] MEDS: APIXABAN 2.5 MG TABLET PO SCH (16:53)
[2023-07-29 20:26] VITALS: RESP 18
[2023-07-29] MEDS: AMIODARONE 450 MG in DEXTROSE 5% IN WATER 250 ML IV SCH (21:56)
[2023-07-30 08:26] VITALS: TEMP 97.8
[2023-07-30] MEDS: FUROSEMIDE 10 MG/ML 10 ML VIAL IV SCH (08:26)
[2023-07-30 09:39] LABS: African American GFR (CKD) 38 (>60 ml/min/1.73 sqM); Anion Gap 7 mmol/L; Blood Urea Nitrogen 46 mg/dL (9-20); Calcium 8.9 mg/dL (8.4-10.2); Carbon Dioxide 25 mmol/L (22-30); Chloride 106 mmol/L (98-107); Glucose 116 mg/dL (74-99); Non-African American GFR(CKD) 33 (>60 ml/min/1.73 sqM); Potassium 4.7 mmol/L (3.5-5.1); Sodium 138 mmol/L (137-145)
[2023-07-30] MEDS: SODIUM CHLORIDE 0.9% 1,000 ML IV SCH (10:23)
[2023-07-30 11:55] VITALS: BP 113/77; PULSE 55
[2023-07-30] MEDS: AMIODARONE 200 MG TAB PO SCH (12:35)
--- NOTE | 2023-07-30 16:06 | P.DS ---
Providers Date of admission: 07/28/23 11:37 Expected date of discharge: 07/30/23 Attending physician: Martir Fair Consults: 07/28/23 11:04 Consult Physician Routine Consulting Provider: Marcello Guillen Consult Reason/Comments: cardiac Do you want consulting provider notified?: Yes Primary care [facility] Course: Chief Complaint: Short of breath This is a very pleasant 87-year-old patient who follows with Dr. Juan J English. 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 CARLA Cmaeron. January/2022 patient underwent DC cardioversion for atrial flutter by Dr. CARLA Cameron and was back in sinus rhythm. CHF with diastolic dysfunction Patient now presents for short of breath for close to 3 weeks. Has some lower extremity edema. Always uses 2 pillows. Short of breath worse with activity. No fever no chills no cough. No chest pain. Patient sought in March Dr. CARLA Cameron. Apparently was in sinus rhythm. Was told everything is doing fine. Patient's present at the bedside. July 29, 2023: Getting IV Lasix 60 mg every 8. Good urine output. Not actively documented. Some improvement in breathing. Some decrease in edema. Has been up to the bathroom. Eating fair. July 30, 2023: Breathing much improved. Patient is put on IV amiodarone per cardiology. at the bedside. Feeling well. Will be discharged home. On oral amiodarone. Oral Lasix. Questions answered. Fluid restriction Discussion and discharge planning more than 35 minutes Past medical history to include: Atrial flutter fibrillation cardioverted on 02/06/2022, hyperlipidemia, hypertension. CHF diastolic dysfunction Social history: smoked for over 70 years stopping about 2021. Alcohol rarely. 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 . Physical examination: VITAL SIGNS: Recent 0.8, 55, 18, 113/77, 93% room air GENERAL: Up in a chair, comfortable EYES: Pupils equal. Conjunctiva normal. HEENT: External appearance of nose and ears normal, oral cavity grossly normal. NECK: JVD raised; masses not palpable. HEART: First and second heart sounds are normal; edema much improved LUNGS: Respiratory rate normal; creased breath sounds ABDOMEN: Soft, nontender, liver spleen not palpable, no masses palpable. PSYCH: Alert and oriented x3; mood and affect normal. MUSCULOSKELETAL:No Clubbing/cyanosis;muscles-grossly intact, OA INVESTIGATIONS, reviewed in the clinical context: July 29: BUN 46 creatinine 1.84 2D echocardiogram [July 28, 2023: EF 20-25%. Global hypokinesia. Mild to moderate mitral regurgitation. July 27: White count 7.8 hemoglobin 13.7 platelets 184 potassium 4.7 BUN 29 creatinine 1.43 EKG tracing personally reviewed by me-atrial flutter fibrillation rate 99 Chest x-ray film personally reviewed by me-cardiomegaly. Some prominent interstitium Previous labs: January 2022: BUN 37 creatinine 1.47 2-D echocardiogram: [January 2022] EF 55-60%. Severe concentric LVH. Moderate mitral annular calcification. Moderate aortic stenosis. Renal ultrasound [January 2022]: Bilateral renal cysts. Assessment and plan: -Acute on chronic congestive heart failure i from systolic dysfunction EF 5 20- 25%: Much improved IV Lasix 60 mg every 8. Strict I's and O's. Fluid restriction 2000 cc a day. Discharged on Lasix 40 mg twice daily Aldactone 25 mg daily Cardiology following -Moderate mitral regurgitation. -Chronic kidney disease stage III likely nephrosclerosis Renal ultrasound [January 2022]-unremarkable. -Paroxysmal atrial flutter fibrillation that was DC cardioverted 2021..: Currently in atrial flutter fibrillation Eliquis. Lopressor 75 mg twice daily Was given IV amiodarone. Discharged on amiodarone p.o. -COPD in previous smoker DuoNeb -Hyperlipidemia Lipitor -Troponinemia in the setting of chronic kidney disease. No ACS -Full code Disposition: Home Past Medical History Past Medical History: Atrial Fibrillation, Atrial Flutter, Hyperlipidemia, Hypertension Additional Past Medical History / Comment(s): Cardioversion 01/26/22 and in 2018. History of Any Multi-Drug Resistant Organisms: None Reported Past Surgical History: Cholecystectomy, Tonsillectomy Past Anesthesia/Blood Transfusion Reactions: No Reported Reaction Past Psychological History: No Psychological Hx Reported Smoking Status: Former smoker Past Alcohol Use History: None Reported Past Drug Use History: None Reported Plan - Discharge Summary Discharge Rx Participant: No New Discharge Prescriptions: New Amiodarone HCl [Pacerone] 400 mg PO BID #34 tablet Apixaban [Eliquis] 2.5 mg PO BID-W/MEALS #60 tab Spironolactone [Aldactone] 25 mg PO DAILY #30 tab Furosemide [Lasix] 80 mg PO DAILY #30 tablet Metoprolol Tartrate [Lopressor] 75 mg PO BID #180 tab Continue Atorvastatin [Lipitor] 20 mg PO DAILY Discontinued Metoprolol Tartrate [Lopressor] 25 mg PO DAILY Apixaban [Eliquis] 5 mg PO BID-W/MEALS Discharge Medication List Atorvastatin [Lipitor] 20 mg PO DAILY 07/28/23 [History] Amiodarone HCl [Pacerone] 400 mg PO BID #34 tablet 07/30/23 [Rx] Apixaban [Eliquis] 2.5 mg PO BID-W/MEALS #60 tab 07/30/23 [Rx] Furosemide [Lasix] 80 mg PO DAILY #30 tablet 07/30/23 [Rx] Metoprolol Tartrate [Lopressor] 75 mg PO BID #180 tab 07/30/23 [Rx] Spironolactone [Aldactone] 25 mg PO DAILY #30 tab 07/30/23 [Rx] Follow up Appointment(s)/Referral(s): Dorian Cameron MD [STAFF PHYSICIAN] - 1 Week (please call and make appt ) Juan J English MD [Primary Care Provider] - 1-2 days (please call and make appt ) Patient Instructions/Handouts: Heart Failure (DC) Activity/Diet/Wound Care/Special Instructions: fluid restrict- 2000 cc/day Discharge Disposition: HOME SELF-CARE
== END 2023-07-30 13:57 | disposition home or self-care (01) | DRG 291 ==
LOC: EC 08:31 → 3SCARD 11:37
PROVIDERS: ADMIT Hospitalist; ATTEND Hospitalist
DX: I13.0 Hypertensive heart and chronic kidney disease with heart failure and stage 1 through stage 4 chronic kidney disease, or unspecified chronic kidney disease (principal); I50.33 Acute on chronic diastolic (congestive) heart failure; I48.92 Unspecified atrial flutter; N18.30 Chronic kidney disease, stage 3 unspecified; E11.22 Type 2 diabetes mellitus with diabetic chronic kidney disease; E78.5 Hyperlipidemia, unspecified; I48.0 Paroxysmal atrial fibrillation; Z79.890 Hormone replacement therapy; G47.00 Insomnia, unspecified; F41.9 Anxiety disorder, unspecified; I42.9 Cardiomyopathy, unspecified; I08.3 Combined rheumatic disorders of mitral, aortic and tricuspid valves; I27.20 Pulmonary hypertension, unspecified; I49.3 Ventricular premature depolarization; R79.89 Other specified abnormal findings of blood chemistry; Z79.899 Other long term (current) drug therapy; Z79.01 Long term (current) use of anticoagulants; Z82.49 Family history of ischemic heart disease and other diseases of the circulatory system; Z87.891 Personal history of nicotine dependence; Z90.49 Acquired absence of other specified parts of digestive tract
CPT/HCPCS: 36415; 71046; 80048; 80053; 83735; 83880; 84484; 85025; 85610; 85730; 93005; 93306; 94640; 96374; 96376; 99285

== ENCOUNTER 2024-05-27 09:56 | Observation (INO) | payer MEDICARE, OTHER ==
[2024-05-27 10:51] LABS: Basophils # (A) 0.1 k/uL (0-0.2); Basophils % (A) 1 %; Eosinophils # (A) 0.3 k/uL (0-0.7); Eosinophils % (A) 3 %; Lymphocytes % (A) 12 %; MCH 31.5 pg (25.0-35.0); MCHC 32.6 g/dL (31.0-37.0); MCV 96.4 fL (80.0-100.0); Mean Platelet Volume 8.5; Monocytes # (A) 0.5 k/uL (0-1.0); Monocytes % (A) 6 %; Neutrophils # (A) 6.5 k/uL (1.3-7.7); Neutrophils % (A) 77 %; Platelet Count 244 k/uL (150-450); RBC 4.46 m/uL (4.30-5.90); RDW 12.9 % (11.5-15.5); WBC 8.4 k/uL (3.8-10.6)
[2024-05-27 10:58] LABS: ALT 14 U/L (4-49); AST 18 U/L (17-59); African American GFR (CKD) 25 (>60 ml/min/1.73 sqM); Albumin 4.4 g/dL (3.5-5.0); Alkaline Phosphatase 80 U/L (38-126); Anion Gap 9 mmol/L; Blood Urea Nitrogen 51 mg/dL (9-20); Calcium 9.5 mg/dL (8.4-10.2); Carbon Dioxide 24 mmol/L (22-30); Chloride 105 mmol/L (98-107); Glucose 114 mg/dL (74-99); Magnesium 2.1 mg/dL (1.6-2.3); Non-African American GFR(CKD) 21 (>60 ml/min/1.73 sqM); Potassium 5.9 mmol/L (3.5-5.1); Sodium 138 mmol/L (137-145); Total Bilirubin 0.6 mg/dL (0.2-1.3)
[2024-05-27 11:03] LABS: Partial Thromboplastin Time 25.6 sec (22.0-30.0); Prothrombin Time 10.9 sec (10.0-12.5)
--- NOTE | 2024-05-27 11:09 | XR ---
Chest, 2 view. CLINICAL INDICATION: Male, 88 years old with history of Chest Pain COMPARISON: TECHNIQUE: PA and lateral views the chest are obtained. FINDINGS: There are a few small focal opacities in the lung bases which could represent early pneumonic infiltr ate and short-term follow-up is recommended.. There is no pleural effusion or pneumothorax. The heart, pulmonary vasculature, mediastinum and sandra appear normal. The osseous structures are intact. IMPRESSION: Possible small focal pneumonia is in the lung bases. Short-term follow-up is recommended. [facility], , 05/27/2024 11:07 AM
--- NOTE | 2024-05-27 11:20 | ED ---
General Adult HPI - General Chief complaint: Shortness of Breath Stated complaint: SOB Time Seen by Provider: 05/27/24 10:31 Source: patient, family, RN notes reviewed, old records reviewed Mode of arrival: ambulatory Limitations: no limitations - History of Present Illness Initial comments: Patient is an 88-year-old male who presents emergency department with episode of shortness of breath yesterday. Also had an episode a few weeks ago of it. Lasted minutes and self resolved. Denies any other acute complaints with it. Denies chest pain, cough, congestion, fevers. Denies any abdominal pain, nausea, vomiting, diarrhea. Currently is asymptomatic. Discussed with and presents for checkup. He has no symptoms today or currently. Does have a history of atrial fibrillation on blood thinners, heart failure, hyperlipidemia, hypertension. Denies any fevers or sick contacts. Presents for further evaluation. Asymptomatic at time of evaluation. - Related Data Home Medications Medication Instructions Recorded Confirmed Amiodarone [Cordarone] 200 mg PO Q2D 05/27/24 05/27/24 Apixaban [Eliquis] 5 mg PO BID 05/27/24 05/27/24 Furosemide [Lasix] 20 mg PO DAILY 05/27/24 05/27/24 Metoprolol Tartrate [Lopressor] 12.5 mg PO DAILY 05/27/24 05/27/24 Previous Rx's Medication Instructions Recorded Spironolactone [Aldactone] 25 mg PO DAILY #30 tab 07/30/23 Allergies Allergy/AdvReac Type Severity Reaction Status Date / Time lisinopril Allergy facial Verified 05/27/24 11:43 swelling, difficulty breathing. Review of Systems ROS Statement: Those systems with pertinent positive or pertinent negative responses have been documented in the HPI. Review of Systems: CONST: Denies fever EYES: Denies blurry vision ENT: Denies nasal congestion C/V: Denies Chest pain RESP: Denies shortness of breath GI: Denies abdominal pain : Denies dysuria SKIN: Denies rash. MSK: Denies joint pain. NEURO: Denies headache ROS Other: All systems not noted in ROS Statement are negative. Past Medical History Past Medical History: Atrial Fibrillation, Atrial Flutter, Heart Failure, Hyperlipidemia, Hypertension Additional Past Medical History / Comment(s): Cardioversion 01/26/22 and in 2018. History of Any Multi-Drug Resistant Organisms: None Reported Past Surgical History: Cholecystectomy, Tonsillectomy Past Anesthesia/Blood Transfusion Reactions: No Reported Reaction Past Psychological History: No Psychological Hx Reported Smoking Status: Former smoker Past Alcohol Use History: None Reported Past Drug Use History: None Reported - Past Family History Mother Family Medical History: Hypertension Father History Unknown: Yes Family Medical History: Hypertension General Exam - General Exam Comments Initial Comments: General: Appears in no acute distress. HEAD: Normal with no signs of head trauma. EYES: PERRLA, EOMI, conjunctiva normal, no discharge. ENT: Hearing grossly intact, normal oropharynx. RESPIRATORY: Clear breath sounds bilaterally. No wheezes, rales, or rhonchi. C/V: Regular rate and rhythm. S1 and S2 auscultated, no edema, peripheral pulses 2+ and intact throughout ABD: Abd is soft, nontender, nondistended EXT: Normal range of motion, no obvious deformity SKIN: No rashes or lesions observed on exposed skin. NEURO: Alert and oriented x 4. Cranial nerves II-XII intact. No focal sensory or strength deficits. Limitations: no limitations Course Vital Signs 05/27/24 05/27/24 05/27/24 10:01 10:52 11:59 Temperature 97.5 F L Pulse Rate 47 L 50 L Respiratory 18 20 Rate Blood Pressure 164/73 O2 Sat by Pulse 97 Oximetry 05/27/24 05/27/24 12:11 12:18 Temperature 98 F Pulse Rate 49 L 45 L Respiratory 16 Rate Blood Pressure 145/81 O2 Sat by Pulse 99 Oximetry Medical Decision Making - Medical Decision Making Was pt. sent in by a medical professional or institution (, PA, CORE ASSEMBLY SUPERVISOR, urgent care, hospital, or custodial...) When possible be specific @ -No Did you speak to anyone other than the patient for history (EMS, parent, family, police, friend...)? What history was obtained from this source @ -No Did you review nursing and triage notes (agree or disagree)? Why? @ -I reviewed and agree with nursing and triage notes Were old charts reviewed (outside hosp., previous admission, EMS record, old EKG, old radiological studies, urgent care reports/EKG's, custodial records)? Report findings @ -Old charts reviewed showing patient does have a history of sinus bradycardia. EKG is obtained from July 2023 shows bradycardia with heart rates in the 30s. Differential Diagnosis (chest pain, altered mental status, abdominal pain women, abdominal pain men, vaginal bleeding, weakness, fever, dyspnea, syncope, headache, dizziness, GI bleed, back pain, seizure, CVA, palpatations, mental health, musculoskeletal)? @ -Differential Dyspnea: Coronary syndrome, arrhythmia, tamponade, asthma, COPD, pulmonary embolism, pneumonia, pneumothorax, pulmonary effusion, anaphylaxis, diabetic ketoacidosis, flailed chest, pulmonary contusion, diaphragmatic rupture, anemia, neuromuscular, this is not meant to be an all-inclusive list. EKG interpreted by me (3pts min.). @ -As above X-rays interpreted by me (1pt min.). @ -Chest x-ray shows no obvious acute cardiopulmonary process. Radiology describes it as a focal pneumonia in the lung bases, however patient has no symptoms of pneumonia. CT interpreted by me (1pt min.). @ -None done U/S interpreted by me (1pt. min.). @ -None done What testing was considered but not performed or refused? (CT, X-rays, U/S, labs)? Why? @ -None What meds were considered but not given or refused? Why? @ -None Did you discuss the management of the patient with other professionals (professionals i.e. , PA, CORE ASSEMBLY SUPERVISOR, lab, RT, psych nurse, director of social services, drafter civil, teacher, retirement officer, case management social worker)? Give summary @ -No Was smoking cessation discussed for >3mins.? @ -No Was critical care preformed (if so, how long)? @ -No Were there social determinants of health that impacted care today? How? (Homelessness, low income, unemployed, alcoholism, drug addiction, transportation, low edu. Level, literacy, decrease access to med. care, retirement, rehab)? @ -No Was there de-escalation of care discussed even if they declined (Discuss DNR or withdrawal of care, Hospice)? DNR status @ -No What co-morbidities impacted this encounter? (DM, HTN, Smoking, COPD, CAD, Cancer, CVA, ARF, Chemo, Hep., AIDS, mental health diagnosis, sleep apnea, morbid obesity)? @ -None Was patient admitted / discharged? Hospital course, mention meds given and route, prescriptions, significant lab abnormalities, going to OR and other pertinent info. @ -Based on the patient's presentation and physical exam, presents for checkup after brief episodes of dyspnea, twice over the last 2 weeks. Will obtain general labs and cardiac labs. He was in agreement this plan. Vital signs remarkable for sinus bradycardia which, on review of prior EKGs from July 2023, he has a history of. Vitals otherwise within acceptable limits. EKG shows sinus bradycardia. Laboratory studies remarkable for hyperkalemia at 5.9, EVA on CKD with a BUN of 51 and creatinine of 2.6, above baseline. Chest x-ray as interpreted by radiology shows possible lower lobe pneumonia that is developing however patient has no clinical symptoms of this. There is no cough, fevers, chills, white count. I do not believe this is pneumonia. Patient was in agreement with this assessment after I discussed this with him. I did discuss with the patient the results of his workup. He will be admitted for nephrology and cardiology consult. Patient given a small fluid bolus as well as hyperkalemia cocktail including Lokelma, calcium, insulin, albuterol. He was in agreement this plan. Further Lasix will not be provided as this could be contributing to his EVA on CKD. One could argue that EKG does have some mild changes with mild peaking of the T waves in the precordial leads, however it is not impressive. No sinusoidal wave pattern. I spoke with accepting physician, Dr. Gomez of [facility] who is covering for Dr. Fair accepted the admission. Undiagnosed new problem with uncertain prognosis? @ -No Drug Therapy requiring intensive monitoring for toxicity (Heparin, Nitro, Insulin, Cardizem)? @ -No Were any procedures done? @ -No Diagnosis/symptom? @ -EVA on CKD, hyperkalemia Acute, or Chronic, or Acute on Chronic? @ -Acute Uncomplicated (without systemic symptoms) or Complicated (systemic symptoms)? @ -Complicated Side effects of treatment? @ -No Exacerbation, Progression, or Severe Exacerbation? @ -No Poses a threat to life or bodily function? How? (Chest pain, [place], [place], pneumonia, PE, COPD, DKA, ARF, appy, cholecystitis, CVA, Diverticulitis, Homicidal, Suicidal, threat to staff... and all critical care pts) @ -Yes - Lab Data Result diagrams: 05/27/24 10:44 05/27/24 10:44 Lab Results 05/27/24 05/27/24 05/27/24 Range/Units 10:44 10:44 10:44 WBC 8.4 (3.8-10.6) k/uL RBC 4.46 (4.30-5.90) m/uL Hgb 14.0 (13.0-17.5) gm/dL Hct 43.0 (39.0-53.0) % MCV 96.4 (80.0-100.0) fL MCH 31.5 (25.0-35.0) pg MCHC 32.6 (31.0-37.0) g/dL RDW 12.9 (11.5-15.5) % Plt Count 244 (150-450) k/uL MPV 8.5 Neutrophils % 77 % Lymphocytes % 12 % Monocytes % 6 % Eosinophils % 3 % Basophils % 1 % Neutrophils # 6.5 (1.3-7.7) k/uL Lymphocytes # 1.0 (1.0-4.8) k/uL Monocytes # 0.5 (0-1.0) k/uL Eosinophils # 0.3 (0-0.7) k/uL Basophils # 0.1 (0-0.2) k/uL PT 10.9 (10.0-12.5) sec INR 1.0 (<1.2) APTT 25.6 (22.0-30.0) sec Sodium 138 (137-145) mmol/L Potassium 5.9 H (3.5-5.1) mmol/L Chloride 105 (98-107) mmol/L Carbon Dioxide 24 (22-30) mmol/L Anion Gap 9 mmol/L BUN 51 H (9-20) mg/dL Creatinine 2.60 H (0.66-1.25) mg/dL Est GFR (CKD-EPI)AfAm 25 (>60 ml/min/1.73 sqM) Est GFR (CKD-EPI)NonAf 21 (>60 ml/min/1.73 sqM) Glucose 114 H (74-99) mg/dL Calcium 9.5 (8.4-10.2) mg/dL Magnesium 2.1 (1.6-2.3) mg/dL Total Bilirubin 0.6 (0.2-1.3) mg/dL AST 18 (17-59) U/L ALT 14 (4-49) U/L Alkaline Phosphatase 80 (38-126) U/L Troponin I (0.000-0.034) ng/mL NT-Pro-B Natriuret Pep pg/mL Total Protein 7.0 (6.3-8.2) g/dL Albumin 4.4 (3.5-5.0) g/dL Urine Color Urine Appearance (Clear) Urine pH (5.0-8.0) Ur Specific [place] (1.001-1.035) Urine Protein (Negative) Urine Glucose (UA) (Negative) Urine Ketones (Negative) Urine Blood (Negative) Urine Nitrite (Negative) Urine Bilirubin (Negative) Urine Urobilinogen (<2.0) mg/dL Ur Leukocyte Esterase (Negative) 05/27/24 05/27/24 05/27/24 Range/Units 10:44 11:04 11:22 WBC (3.8-10.6) k/uL RBC (4.30-5.90) m/uL Hgb (13.0-17.5) gm/dL Hct (39.0-53.0) % MCV (80.0-100.0) fL MCH (25.0-35.0) pg MCHC (31.0-37.0) g/dL RDW (11.5-15.5) % Plt Count (150-450) k/uL MPV Neutrophils % % Lymphocytes % % Monocytes % % Eosinophils % % Basophils % % Neutrophils # (1.3-7.7) k/uL Lymphocytes # (1.0-4.8) k/uL Monocytes # (0-1.0) k/uL Eosinophils # (0-0.7) k/uL Basophils # (0-0.2) k/uL PT (10.0-12.5) sec INR (<1.2) APTT (22.0-30.0) sec Sodium (137-145) mmol/L Potassium (3.5-5.1) mmol/L Chloride (98-107) mmol/L Carbon Dioxide (22-30) mmol/L Anion Gap mmol/L BUN (9-20) mg/dL Creatinine (0.66-1.25) mg/dL Est GFR (CKD-EPI)AfAm (>60 ml/min/1.73 sqM) Est GFR (CKD-EPI)NonAf (>60 ml/min/1.73 sqM) Glucose (74-99) mg/dL Calcium (8.4-10.2) mg/dL Magnesium (1.6-2.3) mg/dL Total Bilirubin (0.2-1.3) mg/dL AST (17-59) U/L ALT (4-49) U/L Alkaline Phosphatase (38-126) U/L Troponin I 0.032 (0.000-0.034) ng/mL NT-Pro-B Natriuret Pep 1660 pg/mL Total Protein (6.3-8.2) g/dL Albumin (3.5-5.0) g/dL Urine Color Colorless Urine Appearance Clear (Clear) Urine pH 5.0 (5.0-8.0) Ur Specific [place] 1.009 (1.001-1.035) Urine Protein Negative (Negative) Urine Glucose (UA) Negative (Negative) Urine Ketones Negative (Negative) Urine Blood Negative (Negative) Urine Nitrite Negative (Negative) Urine Bilirubin Negative (Negative) Urine Urobilinogen <2.0 (<2.0) mg/dL Ur Leukocyte Esterase Negative (Negative) - EKG Data -: EKG Interpreted by Me EKG Comments: 12-lead Electrocardiogram Interpretation Note EKG was reviewed and interpreted by myself. 12-lead ECG performed at 1011 is interpreted by me as revealing sinus bradycardia at a rate of 46 beats per minute. [place] is normal. IN interval is 176 ms, QRS duration is 106 ms, QTc is 473 ms.. There were no ST or T wave abnormalities to suggest myocardial ischemia or injury. R wave progression across the precordium was satisfactory. By my interpretation this EKG is non-diagnostic for acute ischemia. Critical Care Time Critical Care Time: Yes Total Critical Care Time: 32 Disposition Clinical Impression: Acute kidney injury superimposed on CKD, Hyperkalemia Disposition: ADMITTED IP TO THIS [facility] Condition: Serious Time of Disposition: 11:30
[2024-05-27 11:28] LABS: Appearance,Urine Clear (Clear); Bilirubin,Urine Negative (Negative); Blood,Urine Negative (Negative); Color,Urine Colorless; Glucose,Urine (UA) Negative (Negative); Ketones,Urine Negative (Negative); Leukocyte Esterase,Urine Negative (Negative); Nitrite,Urine Negative (Negative); Protein,Urine Negative (Negative); Specific Gravity,Urine 1.009 (1.001-1.035); Urobilinogen,Urine <2.0 mg/dL (<2.0)
[2024-05-27] MEDS: CALCIUM GLUCONATE IN NACL 1 GM in SALINE 1 100ML.BAG IVPB ONE (11:30)
[2024-05-27] MEDS ORDERED: ACETAMINOPHEN TAB 325 MG TAB PO PRN (11:35)
[2024-05-27] MEDS: INSULIN REGULAR 100 UNIT/ML VIAL (IV) IV ONE (11:35)
[2024-05-27] MEDS: DEXTROSE 50% SYRINGE 50 ML IVP ONE (11:35)
[2024-05-27] MEDS ORDERED: NALOXONE 0.4 MG/ML 1 ML VIAL IV PRN (11:35)
[2024-05-27] MEDS: SODIUM ZIRCONIUM CYCLOSILICATE 10 GM PACKET PO ONE (11:44)
[2024-05-27] MEDS: SODIUM CHLORIDE 0.9% 500 ML 500 ML IV ONE (11:44)
[2024-05-27] MEDS: ALBUTEROL NEB (CONC) 2.5 MG/0.5 ML INHALATION ONE (11:58)
--- NOTE | 2024-05-27 14:33 | P.HPIM ---
History of Present Illness This is a pleasant 88 years old male who presents because of dyspnea with exertion. Yesterday he was going some stuff from his car when he felt unusually more short of breath. Currently he feels better but his made him to come to the hospital. He currently denies any dyspnea or chest pain or coughing. No specific GI/ sym ptoms. No headache dizziness weakness numbness He quit smoking 3 years ago. No alcohol or illicit drugs He is adherent to his treatment and he takes Eliquis at home Hemodynamically he is stable and CBC, liver enzymes were unremarkable. Creatinine is elevated at 2.6 with baseline 1.4-1.8 and potassium on the high side 5.9. Troponin is negative at 0.03. Urinalysis is negative. Chest x-ray showing bilateral infiltrates on the same areas in the lower zones although it is read like pneumonia by radiologist however patient denies specific symptoms other than above. EKG showing sinus bradycardia at 46 with interventricular conduction delay In emergency room patient received hyperkalemia cocktail with calcium gluconate, insulin/dextrose 50 and Lokelma. He was admitted with nephrology and cardiology infiltrate Review of Systems Review of systems CONSTITUTIONAL: No fever, no malaise, no fatigue. HEENT: No recent visual problems or hearing problems. Denied any sore throat. CARDIOVASCULAR: No orthopnea, PND, no palpitations, no syncope. PULMONARY: no cough, no hemoptysis. GASTROINTESTINAL: No diarrhea, no nausea, no vomiting, no abdominal pain. Normoactive bowel sounds. NEUROLOGICAL: No headaches, no weakness, no numbness. HEMATOLOGICAL: Denies any bleeding or petechiae. GENITOURINARY: Denies any burning micturition, frequency, or urgency. MUSCULOSKELETAL/RHEUMATOLOGICAL: Denies any joint pain, swelling, or any muscle pain. ENDOCRINE: Denies any polyuria or polydipsia. Past Medical History Past Medical History: Atrial Fibrillation, Atrial Flutter, Heart Failure, Hyperlipidemia, Hypertension Additional Past Medical History / Comment(s): Cardioversion 01/26/22 and in 2018. History of Any Multi-Drug Resistant Organisms: None Reported Past Surgical History: Cholecystectomy, Tonsillectomy Past Anesthesia/Blood Transfusion Reactions: No Reported Reaction Past Psychological History: No Psychological Hx Reported Smoking Status: Former smoker Past Alcohol Use History: None Reported Additional Past Alcohol Use History / Comment(s): quit smoking 2 years ago, hx of 2 packs/week., started smoking as teenager Past Drug Use History: None Reported - Past Family History Mother Family Medical History: Hypertension Father History Unknown: Yes Family Medical History: Hypertension Medications and Allergies Home Medications Medication Instructions Recorded Confirmed Type Spironolactone [Aldactone] 25 mg PO DAILY #30 tab 07/30/23 05/27/24 Rx Amiodarone [Cordarone] 200 mg PO Q2D 05/27/24 05/27/24 History Apixaban [Eliquis] 5 mg PO BID 05/27/24 05/27/24 History Furosemide [Lasix] 20 mg PO DAILY 05/27/24 05/27/24 History Metoprolol Tartrate [Lopressor] 12.5 mg PO DAILY 05/27/24 05/27/24 History Allergies Allergy/AdvReac Type Severity Reaction Status Date / Time lisinopril Allergy facial Verified 05/27/24 11:43 swelling, difficulty breathing. Physical Exam Vitals: Vital Signs Temp Pulse Pulse Resp BP BP Pulse Ox 05/27/24 14:25 97.8 F 59 L 16 124/65 95 05/27/24 12:38 98.0 F 62 17 179/77 97 05/27/24 12:18 98 F 45 L 16 145/81 99 05/27/24 12:11 49 L 05/27/24 11:59 50 L 05/27/24 10:52 20 05/27/24 10:01 97.5 F L 47 L 18 164/73 97 Intake and Output 05/26/24 05/27/24 05/27/24 21:59 06:59 14:59 Other: # Voids 2 Weight 94.347 kg Results CBC & Chem 7: 05/27/24 10:44 05/27/24 10:44 Labs: Abnormal Lab Results - Last 24 Hours (Table) 05/27/24 Range/Units 10:44 Potassium 5.9 H (3.5-5.1) mmol/L BUN 51 H (9-20) mg/dL Creatinine 2.60 H (0.66-1.25) mg/dL Glucose 114 H (74-99) mg/dL Assessment and Plan Assessment: Acute kidney injury on chronic kidney disease with hyperkalemia Exertional dyspnea Bilateral pulmonary infiltrate Paroxysmal A-fib/atrial flutter Hypertension Hyperlipidemia Chronic heart failure. Plan: S/p calcium gluconate and Lokelma Monitor potassium level Continue with Eliquis and amiodarone Hold Lasix Hold Aldactone Continue with metoprolol Cardiology and nephrology team consult Check pro- Calcitonin and pulmonary team consult Further recommendation based on the clinical course GI prophylaxis: Pepcid DVT prophylaxis: Eliquis
--- NOTE | 2024-05-27 15:04 | P.NPCON ---
History of Present Illness - Reason for Consult Consult date: 05/27/24 - Chief Complaint shortness of breath - History of Present Illness 88 years old male with PMHx of Atrial Fibrillation, Atrial Flutter, Heart Failure, Hyperlipidemia, Hypertension, who presented to the ED c/o dyspnea on exertion of 1 day duration, BP was normal, HR low to 40s, Chest x-ray with po ssible small focal pneumonia in the lung bases, EKG showing sinus bradycardia at 46 with interventricular conduction delay. he is admitted for further management. nephrology is consulted for EVA on CKD/ hyperkalemia he is currently feeling good, he denied any further complaints, SOB has resolved. Review of Systems as in HPI Past Medical History Past Medical History: Atrial Fibrillation, Atrial Flutter, Heart Failure, Hyperlipidemia, Hypertension Additional Past Medical History / Comment(s): Cardioversion 01/26/22 and in 2018. History of Any Multi-Drug Resistant Organisms: None Reported Past Surgical History: Cholecystectomy, Tonsillectomy Past Anesthesia/Blood Transfusion Reactions: No Reported Reaction Past Psychological History: No Psychological Hx Reported Smoking Status: Former smoker Past Alcohol Use History: None Reported Additional Past Alcohol Use History / Comment(s): quit smoking 2 years ago, hx of 2 packs/week., started smoking as teenager Past Drug Use History: None Reported - Past Family History Mother Family Medical History: Hypertension Father History Unknown: Yes Family Medical History: Hypertension Medications and Allergies Home Medications Medication Instructions Recorded Confirmed Type Spironolactone [Aldactone] 25 mg PO DAILY #30 tab 07/30/23 05/27/24 Rx Amiodarone [Cordarone] 200 mg PO Q2D 05/27/24 05/27/24 History Apixaban [Eliquis] 5 mg PO BID 05/27/24 05/27/24 History Furosemide [Lasix] 20 mg PO DAILY 05/27/24 05/27/24 History Metoprolol Tartrate [Lopressor] 12.5 mg PO DAILY 05/27/24 05/27/24 History Allergies Allergy/AdvReac Type Severity Reaction Status Date / Time lisinopril Allergy facial Verified 05/27/24 11:43 swelling, difficulty breathing. Physical Exam Vitals: Vital Signs Temp Pulse Pulse Resp BP BP Pulse Ox 05/27/24 14:25 97.8 F 59 L 16 124/65 95 05/27/24 12:38 98.0 F 62 17 179/77 97 05/27/24 12:18 98 F 45 L 16 145/81 99 05/27/24 12:11 49 L 05/27/24 11:59 50 L 05/27/24 10:52 20 05/27/24 10:01 97.5 F L 47 L 18 164/73 97 Intake and Output 05/26/24 05/27/24 05/27/24 21:59 06:59 14:59 Other: # Voids 2 Weight 94.347 kg Patient is awake, comfortable, no acute distress. Heart: S1 and S2 heard Lungs: Bilateral breath sounds are heard Abdomen: Soft and nontender Lower extremities: No edema PHYSICIAN UNDERWRITER: grossly intact Results - Lab Results Most recent lab results Calcium 9.5 mg/dL (8.4-10.2) 05/27/24 10:44 Magnesium 2.1 mg/dL (1.6-2.3) 05/27/24 10:44 05/27/24 10:44 05/27/24 10:44 Assessment and Plan Assessment: # Acute kidney injury on chronic kidney disease stage 3, no signs or symptoms of volume depletion, creatinine on admission 2.6, baseline cr. 1.4-1.8 mg/dl in 2023, UA negative, maintained on Lasix 20 mg daily and Aldactone 25 mg daily at home. he received 500 ml N/S bolus and diuretics were held, no recent renal imaging # Hyperkalemia due to EVA and aldactone use s/p medical management # Exertional dyspnea, Bilateral pulmonary infiltrate # Paroxysmal A-fib/atrial flutter, on amiodarone and AC with Eliquis Plan: -agree with holding diuretics -may need gentle IVF for 24 hours if no improvement in renal function. -check US kidneys/ bladder to rule out obstruction -continue medical management of hyperkalemia -low K diet, check K level post treatment -daily renal panel -closely monitor UO
--- NOTE | 2024-05-27 18:29 | US ---
EXAMINATION TYPE: US kidneys/renal and bladder DATE OF EXAM: 05/27/2024 COMPARISON: Previous ultrasound study 01/31/2022. CLINICAL INDICATION: Male, 88 years old with history of EVA; Abnormal labs. Hx renal cysts. TECHNIQUE: Grayscale imaging of the bilateral kidneys and urinary bladder: FINDINGS: EXAM MEASUREMENTS: Right Kidney: 9.0 x 4.1 x 4.6 cm Left Kidney: 9.0 x 3.9 x 4.6 cm Right Kidney: Multiple anechoic seen, largest measured at inferior medial = 1.9 x 1.6 x 1.8 cm Left Kidney: Largest anechoic lesion mid = 3.3 x 2.6 x 3.0 cm Bladder: mildly distended, anechoic with mild wall thickening. Left jet seen There is no evidence for hydronephrosis at this point in time. No nephrolithiasis is seen. No efren s are identified. The urinary bladder demonstrates mild wall thickening. IMPRESSION: 1. No evidence of acute obstructive uropathy. 2. Circumferential urinary bladder wall thickening, recommend correlation with urinalysis for cystit is. [facility], , 05/27/2024 6:27 PM
[2024-05-27] MEDS: APIXABAN 2.5 MG TABLET PO SCH (21:48)
[2024-05-28 08:23] LABS: ALT 10 U/L (10-49); AST 13 U/L (14-35); Albumin 3.7 g/dL (3.8-4.9); Albumin/Globulin Ratio 2.18 Ratio (1.60-3.17); Alkaline Phosphatase 74 U/L (41-126); BUN/Creat Ratio 19.17 Ratio (12.00-20.00); Calcium 8.7 mg/dL (8.7-10.3); Chloride 108 mmol/L (96-109); Globulin 1.7 g/dL (1.6-3.3); Glucose 104 mg/dL (70-110); Potassium 5.3 mmol/L (3.5-5.5); Sodium 140 mmol/L (135-145); Total Bilirubin 0.3 mg/dL (0.3-1.2); Total Protein 5.4 g/dL (6.2-8.2)
--- NOTE | 2024-05-28 08:28 | P.PN ---
Subjective Patient is seen in follow-up for acute kidney injury on chronic kidney disease. Renal function slightly better. Oral intake is good. No vomiting or diarrhea. Denies chest pain or shortness of breath. Has been voiding. Vital signs are stable. General: No acute distress. HEENT: Head exam is unremarkable. LUNGS: No audible rhonchi or wheezes. HEART: Rate and Rhythm are regular. ABDOMEN: Nontender. EXTREMITITES: No edema. Objective - Vital Signs Vital signs: Vital Signs Temp 97.6 F 05/28/24 07:00 Pulse 66 05/28/24 07:00 Resp 16 05/28/24 07:00 BP 133/73 05/28/24 07:00 Pulse Ox 99 05/28/24 07:00 FiO2 Intake & Output 05/27/24 05/28/24 05/28/24 18:59 06:59 18:59 Weight 94.347 kg Other: # Voids 2 2 - Labs CBC & Chem 7: 05/27/24 10:44 05/28/24 05:01 Labs: Abnormal Lab Results - Last 24 Hours (Table) 05/27/24 05/28/24 Range/Units 10:44 05:01 Potassium 5.9 H (3.5-5.1) mmol/L BUN 51 H 46.0 H (9-20) mg/dL Creatinine 2.60 H 2.4 H (0.66-1.25) mg/dL Est GFR (CKD-EPI) 26 L (>=60) Glucose 114 H (74-99) mg/dL AST 13 L (14-35) U/L Total Protein 5.4 L (6.2-8.2) g/dL Albumin 3.7 L (3.8-4.9) g/dL Assessment and Plan Plan: Assessment: 1. Acute kidney injury secondary to ATN. Creatinine 2.6 on admission and is 2.4 today. UA benign. No hydronephrosis noted on kidney ultrasound. 2. Chronic kidney disease stage IIIb with baseline creatinine near 1.8 from July 2023 secondary to nephrosclerosis. 3. Hyperkalemia secondary to acute kidney injury, Aldactone. Improved. 4. History of A-fib maintained on amiodarone, beta-tomas and Eliquis. Plan: Add normal saline at 60 cc an hour. Renal diet. 10 g Lokelma once today. Continue to hold diuretics. Repeat labs in the morning.
[2024-05-28 08:55] LABS: Basophils # (A) 0.03 X 10*3/uL (0.00-0.10); Basophils % (A) 0.5 %; Eosinophils # (A) 0.24 X 10*3/uL (0.04-0.35); Eosinophils % (A) 3.8 %; HCT 35.7 % (39.6-50.0); HGB 11.7 g/dL (13.0-17.0); Lymphocytes # (A) 0.88 X 10*3/uL (0.90-5.00); Lymphocytes % (A) 13.8 %; MCH 31.3 pg (27.0-32.0); MCHC 32.8 g/dL (32.0-37.0); MCV 95.5 FL (80.0-97.0); Mean Platelet Volume 11.6 FL (9.5-12.2); Monocytes # (A) 0.55 X 10*3/uL (0.20-1.00); Monocytes % (A) 8.6 %; NRBC Per 100 WBC 0 X 10*3/uL (0.00-0.01); Neutrophils # (A) 4.64 X 10*3/uL (1.80-7.70); Neutrophils % (A) 72.7 %; Platelet Count 177 X 10*3/uL (140-440); RBC 3.74 X 10*6/uL (4.40-5.60); RDW 12.8 % (11.5-14.5); WBC 6.38 X 10*3/uL (4.50-10.00)
[2024-05-28] MEDS: SODIUM CHLORIDE 0.9% 1,000 ML IV SCH (09:22)
[2024-05-28] MEDS: AMIODARONE 200 MG TAB PO SCH (09:23)
[2024-05-28] MEDS: SODIUM ZIRCONIUM CYCLOSILICATE 10 GM PACKET PO ONE (09:23)
--- NOTE | 2024-05-28 10:41 | P.PN ---
Progress Note - Text Progress Note Date: 05/28/24 This is a pleasant 88 years old male who presents because of dyspnea with exertion. Yesterday he was going some stuff from his car when he felt unusually more short of breath. Currently he feels better but his made him to come to the hospital. He currently denies any dyspnea or chest pain or coughing. No specific GI/ symptoms. No headache dizziness weakness numbness He quit smoking 3 years ago. No alcohol or illicit drugs He is adherent to his treatment and he takes Eliquis at home Hemodynamically he is stable and CBC, liver enzymes were unremarkable. Creatinine is elevated at 2.6 with baseline 1.4-1.8 and potassium on the high side 5.9. Troponin is negative at 0.03. Urinalysis is negative. Chest x-ray showing bilateral infiltrates on the same areas in the lower zones although it is read like pneumonia by radiologist however patient denies specific symptoms other than above. EKG showing sinus bradycardia at 46 with interventricular conduction delay In emergency room patient received hyperkalemia cocktail with calcium gluconate, insulin/dextrose 50 and Lokelma. He was admitted with nephrology and cardiology infiltrate May 28: Patient stated he had taken from his car a box weighing about 15 pounds to the [employer] store with his . Had become short of breath. Symptoms lasted less than a minute. No chest pain palpitation. Patient's creatinine is elevated. Diuretics were held. Currently on IV fluids 60 cc an hour per nephrology. Patient had no further shortness of breath. Has walked few times in the hallway. Eating well. No cough no fever. Active Medications Acetaminophen (Acetaminophen Tab 325 Mg Tab) 650 mg PO Q6HR PRN PRN Reason: Mild Pain or Fever > 100.5 Amiodarone HCl (Amiodarone 200 Mg Tab) 200 mg PO Q2D [facility] Last Admin: 05/28/24 09:23 Dose: 200 mg Apixaban (Apixaban 2.5 Mg Tablet) 2.5 mg PO BID [facility]; Protocol Last Admin: 05/28/24 09:23 Dose: 2.5 mg Sodium Chloride (Saline 0.9%) 1,000 mls @ 60 mls/hr IV .[id number] [facility] Last Admin: 05/28/24 09:22 Dose: 60 mls/hr Metoprolol Tartrate (Metoprolol Tartrate 12.5 Mg Tab) 12.5 mg PO DAILY ETHAN Naloxone HCl (Naloxone 0.4 Mg/Ml 1 Ml Vial) 0.2 mg IV Q2M PRN PRN Reason: Opioid Reversal Physical examination: VITAL SIGNS: 97.6, 66, 16, 133 x 73, 99% room air GENERAL: Reclining in bed, comfortable EYES: Pupils equal. Conjunctiva normal. HEENT: External appearance of nose and ears normal, oral cavity grossly normal. NECK: JVD raised; masses not palpable. HEART: First and second heart sounds are normal; edema much improved LUNGS: Respiratory rate normal; creased breath sounds ABDOMEN: Soft, nontender, liver spleen not palpable, no masses palpable. PSYCH: Alert and oriented x3; mood and affect normal. MUSCULOSKELETAL:No Clubbing/cyanosis;muscles-grossly intact, OA INVESTIGATIONS, reviewed in the clinical context: May 28: White count 6.3 hemoglobin 11.7 platelets 177 sodium 140 potassium 5.3 BUN 46.0 creatinine 2.4 Troponin I 0.029, 0.034 Procalcitonin 0.12 UA: Negative May 27: Creatinine 2.6 Review of Systems Review of systems CONSTITUTIONAL: No fever, no malaise, no fatigue. HEENT: No recent visual problems or hearing problems. Denied any sore throat. CARDIOVASCULAR: No orthopnea, PND, no palpitations, no syncope. PULMONARY: no cough, no hemoptysis. GASTROINTESTINAL: No diarrhea, no nausea, no vomiting, no abdominal pain. Normoactive bowel sounds. NEUROLOGICAL: No headaches, no weakness, no numbness. HEMATOLOGICAL: Denies any bleeding or petechiae. GENITOURINARY: Denies any burning micturition, frequency, or urgency. MUSCULOSKELETAL/RHEUMATOLOGICAL: Denies any joint pain, swelling, or any muscle pain. ENDOCRINE: Denies any polyuria or polydipsia. Past Medical History Past Medical History: Atrial Fibrillation, Atrial Flutter, Heart Failure, Hyperlipidemia, Hypertension Additional Past Medical History / Comment(s): Cardioversion 01/26/22 and in 2018. History of Any Multi-Drug Resistant Organisms: None Reported Past Surgical History: Cholecystectomy, Tonsillectomy Past Anesthesia/Blood Transfusion Reactions: No Reported Reaction Past Psychological History: No Psychological Hx Reported Smoking Status: Former smoker Past Alcohol Use History: None Reported Additional Past Alcohol Use History / Comment(s): quit smoking 2 years ago, hx of 2 packs/week., started smoking as teenager Past Drug Use History: None Reported - Past Family History Mother Family Medical History: Hypertension Father History Unknown: Yes Family Medical History: Hypertension Assessment plan: -Acute kidney injury secondary to ATN. Admission creatinine 2.6. UA benign. No hydronephrosis on kidney ultrasound. Diuretics held. Gentle hydration. Repeat labs in the morning. -chronic congestive heart failure from systolic dysfunction EF 5 20-25%: Chronic atrial Lasix Aldactone. Currently held -Moderate mitral regurgitation. -Chronic kidney disease stage IIIb likely nephrosclerosis Baseline creatinine 1.8 from July 2023. Secondary nephrosclerosis -Paroxysmal atrial flutter fibrillation that was DC cardioverted 2021..: Currently in sinus rhythm Eliquis. Lopressor 12.5 daily. Amiodarone 200 mg alternate day -Hyperkalemia secondary to underlying chronic kidney disease and acute kidney injury. Treated. Better -Bilateral pulm infiltrates. Patient on amiodarone. Check CT scan chest without contrast high-resolution. -Episode of shortness of breath the last less than a minute while carrying a box of around 15 pounds. Likely exertional shortness of breath. -COPD in previous smoker Stable -Hyperlipidemia -Full code
--- NOTE | 2024-05-28 10:44 | P.CRDCN ---
History of Present Illness History of present illness: This is an 88-year-old male patient of Dr. CARLA Garcia with past medical history of hypertension, hyperlipidemia, probable some component of sick sinus syndrome, paroxysmal atrial fibrillation s/p cardioversion. 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 He has done fairly well since however had an episode on Tuesday where he was walking in from [employer] with some boxes and acutely got short of breath for 2 to 3 minutes. Symptoms then abated and he was back to his normal self. He denies any chest pain or pressure. Denies any significant lightheadedness or dizziness. He has been noted to be in sinus rhythm with heart rates in the 40s to 50s and 60s. He has acute kidney injury with creatinine up to 2.6 and down to 2.4 with IV fluids. He denies any significant lower extremity edema. On presentation 5.9 down to 5.0. He has been on Aldactone at home. Blood pressures have been labile 100s up to 170s. Review Of Systems: At the time of my exam: CONSTITUTIONAL: Denies fever or chills. HEENT: Denies blurred vision, vision changes, or eye pain. Denies hemoptysis CARDIOVASCULAR: Denies chest pain. Denies orthopnea. Denies PND. Denies palpitations RESPIRATORY: Denies shortness of breath. GASTROINTESTINAL: Denies abdominal pain. Denies nausea or vomiting. HEMATOLOGIC: Denies bleeding disorders. GENITOURINARY: Denies any blood in urine. SKIN: Denies pruitis. Denies rash. Physical examination: Gen: This is an 87-year-old male in no acute distress VS: reviewed, blood pressure 107/69, heart rate 94, pulse ox 94% on room air. HEENT: Head is atraumatic, normocephalic. Pupils equal, round. Sclerae is anicteric. NECK: Supple. No JVD. LUNGS: Clear to auscultation. No wheezes or rhonchi. No intercostal retractions. HEART: Irregular rate and rhythm. No murmur. ABDOMEN: Soft No tenderness. EXTREMITIES: No pedal edema. No calf tenderness. NEUROLOGICAL: Patient is awake, alert and oriented x3. Assessment: Episode of dyspnea, questionably related to A-fib versus other. 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 Creatinine mildly improved with holding diuretics and giving IV fluids. Hyperkalemia likely exacerbated by Aldactone and continue to hold. Check limited 2D echo and if EF improves likely hold Aldactone and Lasix going home. Recommend 1 week event monitor going home to evaluate for intermittent episodes of A-fib which may be causing some of his symptoms. If echo unrevealing, patient may be discharged home from a cardiology standpoint with outpatient follow-up. Past Medical History Past Medical History: Atrial Fibrillation, Atrial Flutter, Heart Failure, Hyperlipidemia, Hypertension Additional Past Medical History / Comment(s): Cardioversion 01/26/22 and in 2018. History of Any Multi-Drug Resistant Organisms: None Reported Past Surgical History: Cholecystectomy, Tonsillectomy Past Anesthesia/Blood Transfusion Reactions: No Reported Reaction Past Psychological History: No Psychological Hx Reported Smoking Status: Former smoker Past Alcohol Use History: None Reported Past Drug Use History: None Reported - Past Family History Mother Family Medical History: Hypertension Father History Unknown: Yes Family Medical History: Hypertension Medications and Allergies Home Medications Medication Instructions Recorded Confirmed Type Spironolactone [Aldactone] 25 mg PO DAILY #30 tab 07/30/23 05/27/24 Rx Amiodarone [Cordarone] 200 mg PO Q2D 05/27/24 05/27/24 History Apixaban [Eliquis] 5 mg PO BID 05/27/24 05/27/24 History Furosemide [Lasix] 20 mg PO DAILY 05/27/24 05/27/24 History Metoprolol Tartrate [Lopressor] 12.5 mg PO DAILY 05/27/24 05/27/24 History Allergies Allergy/AdvReac Type Severity Reaction Status Date / Time lisinopril Allergy facial Verified 05/27/24 11:43 swelling, difficulty breathing. Physical Exam Vitals: Vital Signs Temp Pulse Pulse Resp BP BP Pulse Ox 05/28/24 07:00 97.6 F 66 16 133/73 99 05/28/24 02:00 98.1 F 53 L 15 104/53 97 05/27/24 18:41 97.5 F L 57 L 16 154/69 99 05/27/24 14:25 97.8 F 59 L 16 124/65 95 05/27/24 12:38 98.0 F 62 17 179/77 97 05/27/24 12:18 98 F 45 L 16 145/81 99 05/27/24 12:11 49 L 05/27/24 11:59 50 L 05/27/24 10:52 20 Intake and Output 05/27/24 05/28/24 05/28/24 22:59 06:59 14:59 Other: # Voids 2 2 Results 05/28/24 05:01 05/28/24 05:01 Cardiac Enzymes 05/27/24 05/27/24 05/27/24 Range/Units 10:44 10:44 16:27 AST 18 (17-59) U/L Troponin I 0.032 0.029 (0.000-0.034) ng/mL 05/27/24 05/28/24 Range/Units 19:30 05:01 AST 13 L (17-59) U/L Troponin I 0.034 (0.000-0.034) ng/mL Coagulation 05/27/24 Range/Units 10:44 PT 10.9 (10.0-12.5) sec APTT 25.6 (22.0-30.0) sec CBC 05/27/24 05/28/24 Range/Units 10:44 05:01 WBC 8.4 6.38 (3.8-10.6) k/uL RBC 4.46 3.74 L (4.30-5.90) m/uL Hgb 14.0 11.7 L (13.0-17.5) gm/dL Hct 43.0 35.7 L (39.0-53.0) % Plt Count 244 177 (150-450) k/uL Comprehensive Metabolic Panel 05/27/24 05/27/24 05/28/24 Range/Units 10:44 16:27 05:01 Sodium 138 140 (137-145) mmol/L Potassium 5.9 H 5.0 5.3 (3.5-5.1) mmol/L Chloride 105 108 (98-107) mmol/L Carbon Dioxide 24 22.0 (22-30) mmol/L BUN 51 H 46.0 H (9-20) mg/dL Creatinine 2.60 H 2.4 H (0.66-1.25) mg/dL Glucose 114 H 104 (74-99) mg/dL Calcium 9.5 8.7 (8.4-10.2) mg/dL AST 18 13 L (17-59) U/L ALT 14 10 (4-49) U/L Alkaline Phosphatase 80 74 (38-126) U/L Total Protein 7.0 5.4 L (6.3-8.2) g/dL Albumin 4.4 3.7 L (3.5-5.0) g/dL Current Medications Generic Name Dose Route Start Last Admin Trade Name Freq PRN Reason Stop Dose Admin Acetaminophen 650 mg 05/27/24 11:35 Acetaminophen Tab 325 Mg Tab PO Q6HR PRN Mild Pain or Fever > 100.5 Amiodarone HCl 200 mg 05/28/24 09:00 05/28/24 09:23 Amiodarone 200 Mg Tab PO 200 mg Q2D ETHAN Administration Apixaban 2.5 mg 05/27/24 21:00 05/28/24 09:23 Apixaban 2.5 Mg Tablet PO 2.5 mg BID ETHAN Administration Protocol Sodium Chloride 1,000 mls @ 60 mls/hr 05/28/24 08:30 05/28/24 09:22 Saline 0.9% IV 60 mls/hr .[id number] ETHAN Administration Metoprolol Tartrate 12.5 mg 05/28/24 09:00 Metoprolol Tartrate 12.5 Mg Tab PO DAILY ETHAN Naloxone HCl 0.2 mg 05/27/24 11:35 Naloxone 0.4 Mg/Ml 1 Ml Vial IV Q2M PRN Opioid Reversal Intake and Output 05/27/24 05/28/24 05/28/24 22:59 06:59 14:59 Other: # Voids 2 2 05/28/24 05:01 05/28/24 05:01
--- NOTE | 2024-05-28 11:22 | P.CNPUL ---
History of Present Illness Consult date: 05/28/24 Chief complaint: Abnormal x-ray History of present illness: 88-year-old male seen evaluate examined on medical floor patient admitted with dyspnea on exertion which was more than baseline patient came into the hospital for further evaluation. No specific complaint of shortness of breath at rest also denies any cough or sputum production denies any chest pain denies any headache nausea vomiting diarrhea patient used to smoke heavily quit about 3 years ago no history of substance use, patient has chronic atrial fibrillation takes Eliquis, labs reviewed, admit CBC within normal limit coags okay potassium is high 5.9 BUN/creatinine 51/2.6 troponin 0.032 BNP is 1660 urine analysis unremarkable procalcitonin within normal limit, chest x-ray focal opacities in the base early pneumonia cannot be excluded. ECG sinus bradycardia, abdominal ultrasound, no evidence of hydronephrosis seen, no nephrolithiasis identified, mild bladder wall thickening is noted patient received calcium gluconate bronchodilator with albuterol as well as Lokelma for hyperkalemia currently gently being hydrated of note that patient is on amiodarone has been continued on Eliquis. Repeat labs today showed slightly decline in hemoglobin to 11.7 from baseline of 14, potassium improved to 5.3, BUN/creatinine improved to 46/2.4 . Review of Systems All systems: negative Past Medical History Past Medical History: Atrial Fibrillation, Atrial Flutter, Heart Failure, Hyperlipidemia, Hypertension Additional Past Medical History / Comment(s): Cardioversion 01/26/22 and in 2018. History of Any Multi-Drug Resistant Organisms: None Reported Past Surgical History: Cholecystectomy, Tonsillectomy Past Anesthesia/Blood Transfusion Reactions: No Reported Reaction Past Psychological History: No Psychological Hx Reported Smoking Status: Former smoker Past Alcohol Use History: None Reported Past Drug Use History: None Reported - Past Family History Mother Family Medical History: Hypertension Father History Unknown: Yes Family Medical History: Hypertension Medications and Allergies Home Medications Medication Instructions Recorded Confirmed Type Spironolactone [Aldactone] 25 mg PO DAILY #30 tab 07/30/23 05/27/24 Rx Amiodarone [Cordarone] 200 mg PO Q2D 05/27/24 05/27/24 History Apixaban [Eliquis] 5 mg PO BID 05/27/24 05/27/24 History Furosemide [Lasix] 20 mg PO DAILY 05/27/24 05/27/24 History Metoprolol Tartrate [Lopressor] 12.5 mg PO DAILY 05/27/24 05/27/24 History Allergies Allergy/AdvReac Type Severity Reaction Status Date / Time lisinopril Allergy facial Verified 05/27/24 11:43 swelling, difficulty breathing. Physical Exam Vitals: Vital Signs Temp Pulse Pulse Resp BP BP Pulse Ox 05/28/24 07:00 97.6 F 66 16 133/73 99 05/28/24 02:00 98.1 F 53 L 15 104/53 97 05/27/24 18:41 97.5 F L 57 L 16 154/69 99 05/27/24 14:25 97.8 F 59 L 16 124/65 95 05/27/24 12:38 98.0 F 62 17 179/77 97 05/27/24 12:18 98 F 45 L 16 145/81 99 05/27/24 12:11 49 L 05/27/24 11:59 50 L Intake and Output 05/27/24 05/28/24 05/28/24 22:59 06:59 14:59 Other: # Voids 2 2 - Constitutional General appearance: average body habitus, cooperative, disheveled - EENT Eyes: EOMI, PERRLA Ears: bilateral: normal - Neck Neck: normal ROM Carotids: bilateral: upstroke normal Thyroid: bilateral: normal size - Respiratory Respiratory: bilateral: CTA - Cardiovascular Rhythm: regular Heart sounds: normal: S1, S2 - Gastrointestinal General gastrointestinal: normal bowel sounds, soft - Integumentary Integumentary: normal turgor - Neurologic Neurologic: CNII-XII intact - Musculoskeletal Musculoskeletal: gait normal, generalized weakness, strength equal bilaterally - Psychiatric Psychiatric: A&O x's 3, appropriate affect, intact judgment & insight Results - Laboratory Findings CBC and BMP: 05/28/24 05:01 05/28/24 05:01 PT/INR, D-dimer PT 10.9 sec (10.0-12.5) 05/27/24 10:44 INR 1.0 (<1.2) 05/27/24 10:44 Abnormal lab findings: Abnormal Labs 05/27/24 05/28/24 05/28/24 10:44 05:01 05:01 RBC 3.74 L Hgb 11.7 L Hct 35.7 L Lymphocytes # 0.88 L Potassium 5.9 H BUN 51 H 46.0 H Creatinine 2.60 H 2.4 H Est GFR (CKD-EPI) 26 L Glucose 114 H AST 13 L Total Protein 5.4 L Albumin 3.7 L - Diagnostic Findings Chest x-ray: report reviewed, image reviewed Assessment and Plan Assessment: Subtle interstitial infiltrate bilaterally less likely to be pneumonia more of crowding of bronchovascular marking given the history of extensive smoking we will do a CT scan of the chest without contrast Extensive history of smoking and nicotine use, likely COPD further evaluation as outpatient Chronic atrial fibrillation on direct oral anticoagulant Acute on chronic kidney disease, continue to follow urine output and renal functions closely ultrasound not suggestive of obstructive nephropathy urinalysis not suggestive of infection Bladder wall thickening as above Hyperkalemia, improved with Lokelma and potassium lowering agents Elevated BNP and elevated renal functions possible fluid overload cannot be excluded, however given presence of acute kidney disease patient is gently being hydrated Plan: As above Time with Patient: Greater than 30
[2024-05-28] MEDS: METOPROLOL TARTRATE 12.5 MG TAB PO SCH (11:40)
--- NOTE | 2024-05-28 14:42 | CT ---
INDICATION: Patient age:Male; 88 years old; Reason for study: Pulm infiltrates. Rule out fibrosis; PHH. COMPARISON: Chest radiograph 05/27/2024 TECHNIQUE: Multiple thin axial images were obtained through the chest at selected intervals. Prone and supine in spiratory along with supine expiratory images were submitted for review. Please note that due to inte rval acquisition images as defined by high-resolution CT protocol the entire lung parenchyma is not e valuated, therefore small nodular densities may not be visualized. Evaluation of vascular structures , viscera and lymphatics is limited due to lack of intravenous contrast administration. One or more C T dose reduction strategies were utilized during this examination. Total DLP 1759.40 mGycm. FINDINGS: LUNGS: There is no evidence of interstitial thickening, significant groundglass opacity, honeycombing or architectural distortion in the lungs. No bronchiectasis. Medial right lower lobe subsegmental at electasis. Multiple tiny pulmonary nodular opacities within the bilateral subpleural apices measuring 2 to 3 mm. No focal consolidation. LARGE AIRWAYS: Central airways are patent. No dynamic airway collapse on expiratory imaging. PLEURA: No pleural effusion or thickening. HEART AND PERICARDIUM: Heart is normal in size. There is no pericardial effusion. Mild coronary arter y calcifications present. Small aortic valvular and mitral annulus calcifications. MEDIASTINUM AND RAFITA: No mediastinal or hilar lymphadenopathy or soft tissue mass. VESSELS: The thoracic aorta is normal in course and caliber. Atherosclerotic calcification of the ao rta and its branches. CHEST WALL AND DIAPHRAGM: Bilateral gynecomastia is incidentally noted. LOWER NECK: Normal. UPPER ABDOMEN: Gallbladder surgically absent. MUSCULOSKELETAL: Mild degenerative changes are present in the thoracic spine. IMPRESSION: 1. No evidence interstitial lung disease. 2. Multiple tiny pulmonary micronodules within the bilateral lung apices which may represent an infec tious/inflammatory bronchiolitis. In a low risk patient no follow up is recommended. In a high-risk p atient consider optional CT chest in 12 months. [facility], , 05/28/2024 2:40 PM
[2024-05-29 00:09] VITALS: RESP 17
[2024-05-29 06:06] LABS: African American GFR (CKD) 31 (>60 ml/min/1.73 sqM); Anion Gap 6 mmol/L; Blood Urea Nitrogen 45 mg/dL (9-20); Calcium 8.6 mg/dL (8.4-10.2); Carbon Dioxide 23 mmol/L (22-30); Chloride 110 mmol/L (98-107); Glucose 93 mg/dL (74-99); Magnesium 2.1 mg/dL (1.6-2.3); Non-African American GFR(CKD) 27 (>60 ml/min/1.73 sqM); Potassium 5.1 mmol/L (3.5-5.1); Sodium 139 mmol/L (137-145)
[2024-05-29 08:28] VITALS: BP 118/56; PULSE 44; TEMP 97.8
--- NOTE | 2024-05-29 09:45 | P.PN ---
Subjective Progress Note Date: 05/29/24 Principal diagnosis: Subtle interstitial infiltrate bilaterally less likely to be pneumonia more of crowding of bronchovascular marking given the history of extensive smoking we wi ll do a CT scan of the chest without contrast Extensive history of smoking and nicotine use, likely COPD further evaluation as outpatient Chronic atrial fibrillation on direct oral anticoagulant Acute on chronic kidney disease, continue to follow urine output and renal functions closely ultrasound not suggestive of obstructive nephropathy urinalysis not suggestive of infection Bladder wall thickening as above Hyperkalemia, improved with Lokelma and potassium lowering agents Elevated BNP and elevated renal functions possible fluid overload cannot be excluded, however given presence of acute kidney disease patient is gently being hydrated May 29, 2024, patient seen eval examined during rounds labs reviewed medications reviewed care plan discussed, hemodynamic status overall stable, o xygen saturation 98%, heart rate however is low 44, patient is afebrile. Patient remains on amiodarone oral along with direct oral anticoagulant along with beta-blockers gently being hydrated. Labs from today reviewed, CBC is not done, potassium improved to 5.1, BUN/creatinine stable 45/2.17. CT scan of the chest no evidence of interstitial lung disease, multiple tiny pulmonary micronodules within bilateral pulmonary apices seen of unclear significance 88-year-old male seen evaluate examined on medical floor patient admitted with dyspnea on exertion which was more than baseline patient came into the hospital for further evaluation. No specific complaint of shortness of breath at rest al so denies any cough or sputum production denies any chest pain denies any headache nausea vomiting diarrhea patient used to smoke heavily quit about 3 years ago no history of substance use, patient has chronic atrial fibrillation takes Eliquis, labs reviewed, admit CBC within normal limit coags okay potassium is high 5.9 BUN/creatinine 51/2.6 troponin 0.032 BNP is 1660 urine analysis unremarkable procalcitonin within normal limit, chest x-ray focal opacities in the base early pneumonia cannot be excluded. ECG sinus bradycardia, abdominal ultrasound, no evidence of hydronephrosis seen, no nephrolithiasis identified, mild bladder wall thickening is noted patient received calcium gluconate bro nchodilator with albuterol as well as Lokelma for hyperkalemia currently gently being hydrated of note that patient is on amiodarone has been continued on Eliquis. Repeat labs today showed slightly decline in hemoglobin to 11.7 from baseline of 14, potassium improved to 5.3, BUN/creatinine improved to 46/2.4 . Objective - Vital Signs Vital signs: Vital Signs Temp 97.8 F 05/29/24 07:30 Pulse 44 L 05/29/24 07:30 Resp 17 05/29/24 07:30 BP 118/56 05/29/24 07:30 Pulse Ox 98 05/29/24 07:30 FiO2 Intake & Output 05/28/24 05/29/24 05/29/24 18:59 06:59 18:59 Other: # Voids 4 2 - Exam - Constitutional General appearance: average body habitus, cooperative, disheveled - EENT Eyes: EOMI, PERRLA Ears: bilateral: normal - Neck Neck: normal ROM Carotids: bilateral: upstroke normal Thyroid: bilateral: normal size - Respiratory Respiratory: bilateral: CTA - Cardiovascular Rhythm: regular Heart sounds: normal: S1, S2 - Gastrointestinal General gastrointestinal: normal bowel sounds, soft - Integumentary Integumentary: normal turgor - Neurologic Neurologic: CNII-XII intact - Musculoskeletal Musculoskeletal: gait normal, generalized weakness, strength equal bilaterally - Psychiatric Psychiatric: A&O x's 3, appropriate affect, intact judgment & insight - Labs CBC & Chem 7: 05/28/24 05:01 05/29/24 04:56 Labs: Abnormal Lab Results - Last 24 Hours (Table) 05/29/24 Range/Units 04:56 Chloride 110 H (98-107) mmol/L BUN 45 H (9-20) mg/dL Creatinine 2.17 H (0.66-1.25) mg/dL Assessment and Plan Assessment: Bilateral upper lobe tiny pulmonary nodule of unclear significance Extensive history of smoking and nicotine use, likely COPD further evaluation as outpatient Chronic atrial fibrillation on direct oral anticoagulant Acute on chronic kidney disease, continue to follow urine output and renal functions closely ultrasound not suggestive of obstructive nephropathy urinalysis not suggestive of infection Bladder wall thickening as above Hyperkalemia, improved with Lokelma and potassium lowering agents Elevated BNP and elevated renal functions possible fluid overload cannot be excluded, however given presence of acute kidney disease patient is gently being hydrated Plan: As above, will monitor observe closely consider bronchoscopy as outpatient if symptoms does not resolve Time with Patient: Greater than 30
--- NOTE | 2024-05-29 11:14 | P.PN ---
Subjective This is an 88-year-old male patient of Dr. CARLA Garcia with past medical history of hypertension, hyperlipidemia, probable some component of sick sinus syndrome, paroxysmal atrial fibrillation s/p cardioversion. 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 He has done fairly well since however had an episode on Tuesday where he was walking in from [employer] with some boxes and acutely got short of breath for 2 to 3 minutes. Symptoms then abated and he was back to his normal self. He denies any chest pain or pressure. Denies any significant lightheadedness or dizziness. He has been noted to be in sinus rhythm with heart rates in the 40s to 50s and 60s. He has acute kidney injury with creatinine up to 2.6 and down to 2.4 with IV fluids. He denies any significant lower extremity edema. On presentation 5.9 down to 5.0. He has been on Aldactone at home. Blood pressures have been labile 100s up to 170s. 05/29 Patient seen and examined. Patient denies any chest pain or pressure. Feeling better today. Creatinine improved to 2.1. He was decreased on his Eliquis from 5-2.5. Echocardiogram shows EF 50 to 55%. Does not appear volume overloaded. Physical examination: Gen: This is an 87-year-old male in no acute distress VS: reviewed, blood pressure 107/69, heart rate 94, pulse ox 94% on room air. HEENT: Head is atraumatic, normocephalic. Pupils equal, round. Sclerae is anicteric. NECK: Supple. No JVD. LUNGS: Clear to auscultation. No wheezes or rhonchi. No intercostal retractions. HEART: Irregular rate and rhythm. No murmur. ABDOMEN: Soft No tenderness. EXTREMITIES: No pedal edema. No calf tenderness. NEUROLOGICAL: Patient is awake, alert and oriented x3. Assessment: Episode of dyspnea, questionably related to A-fib versus other. 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 Therefore avoid aggressive heart failure regimen at this time especially given hyp erkalemia and acute kidney injury. Continue with metoprolol, amiodarone, lower dose of Eliquis. Patient stable for discharge home. Bradycardia asymptomatic. Objective - Vital Signs Vital signs: Vital Signs Temp 97.8 F 05/29/24 07:30 Pulse 44 L 05/29/24 07:30 Resp 17 05/29/24 07:30 BP 118/56 05/29/24 07:30 Pulse Ox 98 05/29/24 07:30 FiO2 Intake & Output 05/28/24 05/29/24 05/29/24 18:59 06:59 18:59 Intake Total 222 Balance 222 Intake: Oral 222 Other: # Voids 4 2 - Labs CBC & Chem 7: 05/28/24 05:01 05/29/24 04:56 Labs: Abnormal Lab Results - Last 24 Hours (Table) 05/29/24 Range/Units 04:56 Chloride 110 H (98-107) mmol/L BUN 45 H (9-20) mg/dL Creatinine 2.17 H (0.66-1.25) mg/dL
--- NOTE | 2024-05-29 11:18 | CA ---
Transthoracic Echo Report Name: Mario Hampton Age: 88 Gender: M : 1935 Exam Date: 05/28/2024 17:46 Exam Location: [facility] Ht (in): 71 Wt (lb): 208 Ordering Physician: Marcello Guillen DO ([email or web address]) Attending/Referring Phys: [employer] Professor Inna Valenzuela, JAIDA Procedure CPT: Indications: re: LV function Cardiac Hx: Technical Quality: Fair Contrast 1: Total Dose (mL): Contrast 2: Total Dose (mL): MEASUREMENTS (Male / Female) Normal Values 2D ECHO LV Diastolic Volume MOD 4C 132.3 cm??? LV Systolic Volume MOD 4C 65.6 cm??? LV Ejection Fraction MOD 4C 50.5 % LV Cardiac Index MOD 4C 1460.3 cm???/min???m??? LV Diastolic Length 4C 9.1 cm LV Systolic Length 4C 7.2 cm LV Diastolic Volume MOD 2C 128.3 cm??? LV Systolic Volume MOD 2C 54.3 cm??? LV Ejection Fraction MOD 2C 57.7 % LV Cardiac Index MOD 2C 1617.7 cm???/min???m??? LV Diastolic Length 2C 8.7 cm LV Systolic Length 2C 7.1 cm FINDINGS Left Ventricle Left ventricular ejection fraction is estimated at 50-55 %. No obvious regional wall motion abnormalities. Right Ventricle Right Atrium Left Atrium Mitral Valve Mitral valve thickened. Trace mitral regurgitation. Aortic Valve Trileaflet aortic valve. Aortic valve sclerosis. Mild aortic regurgitation. Tricuspid Valve Pulmonic Valve Structurally normal pulmonic valve. [id number] pulmonic regurgitation. Pericardium No pericardial effusion. Aorta CONCLUSIONS Limited 2-D echo Left ventricular ejection fraction 50-55% Mild aortic regurgitation Previewed by: Dr. Marcello Guillen DO (Electronically Signed) Final Date: 29 May 2024 11:17
--- NOTE | 2024-05-29 12:33 | P.PN ---
Subjective Patient is seen in follow-up for acute kidney injury on chronic kidney disease. Renal function better. Oral intake is good. No vomiting or diarrhea. Denies chest pain or shortness of breath. Has been voiding. Vital signs are stable. General: No acute distress. HEENT: Head exam is unremarkable. LUNGS: No audible rhonchi or wheezes. HEART: Rate and Rhythm are regular. ABDOMEN: Nontender. EXTREMITITES: No edema. Objective - Vital Signs Vital signs: Vital Signs Temp 97.8 F 05/29/24 07:30 Pulse 44 L 05/29/24 07:30 Resp 17 05/29/24 07:30 BP 118/56 05/29/24 07:30 Pulse Ox 98 05/29/24 07:30 FiO2 Intake & Output 05/28/24 05/29/24 05/29/24 18:59 06:59 18:59 Intake Total 222 Balance 222 Intake: Oral 222 Other: # Voids 4 2 - Labs CBC & Chem 7: 05/28/24 05:01 05/29/24 04:56 Labs: Abnormal Lab Results - Last 24 Hours (Table) 05/29/24 Range/Units 04:56 Chloride 110 H (98-107) mmol/L BUN 45 H (9-20) mg/dL Creatinine 2.17 H (0.66-1.25) mg/dL Assessment and Plan Plan: Assessment: 1. Acute kidney injury secondary to ATN. Creatinine 2.6 on admission and is 2.17 today. UA benign. No hydronephrosis noted on kidney ultrasound. 2. Chronic kidney disease stage IIIb with baseline creatinine near 1.8 from July 2023 secondary to nephrosclerosis. 3. Hyperkalemia secondary to acute kidney injury, Aldactone. Improved. 4. History of A-fib maintained on amiodarone, beta-tomas and Eliquis. Plan: Maintain IV fluids for now. Renal diet. Continue to hold diuretics upon discharge. Patient to resume Lasix 20 mg daily if notices edema or gains more than 3 pounds in 1 week duration. Follow-up outpatient 1 week postdischarge.
--- NOTE | 2024-05-29 19:04 | P.DS ---
Providers Date of admission: 05/27/24 11:37 Expected date of discharge: 05/29/24 Attending physician: Martir Fair Consults: 05/27/24 11:35 Consult Physician Routine Consulting Provider: [facility] Consult Reason/Comments: chronic bradycardia Do you want consulting provider notified?: Yes Consult Physician Routine Consulting Provider: Negra Espino Consult Reason/Comments: kristie on ckd, hyperkalemia Do you want consulting provider notified?: Yes 05/27/24 14:33 Consult Physician Routine Consulting Provider: Sudhakar Mercado Consult Reason/Comments: pulmonary infilterates Do you want consulting provider notified?: Yes Primary care physician: [facility] Course: This is a pleasant 88 years old male who presents because of dyspnea with exertion. Yesterday he was going some stuff from his car when he felt unusually more short of breath. Currently he feels better but his made him to come to the hospital. He currently denies any dyspnea or chest pain or coughing. No specific GI/ symptoms. No headache dizziness weakness numbness He quit smoking 3 years ago. No alcohol or illicit drugs He is adherent to his treatment and he takes Eliquis at home Hemodynamically he is stable and CBC, liver enzymes were unremarkable. Creatinine is elevated at 2.6 with baseline 1.4-1.8 and potassium on the high side 5.9. Troponin is negative at 0.03. Urinalysis is negative. Chest x-ray showing bilateral infiltrates on the same areas in the lower zones although it is read like pneumonia by radiologist however patient denies specific symptoms other than above. EKG showing sinus bradycardia at 46 with interventricular conduction delay In emergency room patient received hyperkalemia cocktail with calcium gluconate, insulin/dextrose 50 and Lokelma. He was admitted with nephrology and cardiology infiltrate May 28: Patient stated he had taken from his car a box weighing about 15 pounds to the [employer] store with his . Had become short of breath. Symptoms lasted less than a minute. No chest pain palpitation. Patient's creatinine is elevated. Diuretics were held. Currently on IV fluids 60 cc an hour per nephrology. Patient had no further shortness of breath. Has walked few times in the hallway. Eating well. No cough no fever. May 29: Patient doing well.Up and about. Cleared by cardiology. 2D echo showed EF of 50 to 55%. Aldactone discontinued. Keep on Lasix 20 and follow-up outpatient. Patient follow-up with cardiology, pulmonary Dr. Mercado, nephrology Dr. Michael. Outpatient labs to be done. CT chest results discussed with the patient. Discussion and discharge planning more than 35 minutes Physical examination: VITAL SIGNS: 97.8, 44, 17, 118 x 56, 98% room air GENERAL: Reclining in bed, comfortable EYES: Pupils equal. Conjunctiva normal. HEENT: External appearance of nose and ears normal, oral cavity grossly normal. NECK: JVD raised; masses not palpable. HEART: First and second heart sounds are normal; edema much improved LUNGS: Respiratory rate normal; creased breath sounds ABDOMEN: Soft, nontender, liver spleen not palpable, no masses palpable. PSYCH: Alert and oriented x3; mood and affect normal. MUSCULOSKELETAL:No Clubbing/cyanosis;muscles-grossly intact, OA INVESTIGATIONS, reviewed in the clinical context: CT chest: Multiple tiny pulmonary micronodules. Within the bilateral apical apices. No fibrosis Limited 2D echo: EF 50 to 55% May 28: White count 6.3 hemoglobin 11.7 platelets 177 sodium 140 potassium 5.3 BUN 46.0 creatinine 2.4 Troponin I 0.029, 0.034 Procalcitonin 0.12 UA: Negative May 27: Creatinine 2.6 Past Medical History Past Medical History: Atrial Fibrillation, Atrial Flutter, Heart Failure, Hyperlipidemia, Hypertension Additional Past Medical History / Comment(s): Cardioversion 01/26/22 and in 2018. History of Any Multi-Drug Resistant Organisms: None Reported Past Surgical History: Cholecystectomy, Tonsillectomy Past Anesthesia/Blood Transfusion Reactions: No Reported Reaction Past Psychological History: No Psychological Hx Reported Smoking Status: Former smoker Past Alcohol Use History: None Reported Additional Past Alcohol Use History / Comment(s): quit smoking 2 years ago, hx of 2 packs/week., started smoking as teenager Past Drug Use History: None Reported - Past Family History Mother Family Medical History: Hypertension Father History Unknown: Yes Family Medical History: Hypertension Assessment plan: -Acute kidney injury secondary to ATN. Admission creatinine 2.6. UA benign. No hydronephrosis on kidney ultrasound. Diuretics held. Gentle hydration. Repeat labs outpatient -chronic congestive heart failure from systolic dysfunction EF 50-55% Stop Aldactone. Lasix 20 mg. -Moderate mitral regurgitation. -Multiple tiny pulmonary micronodules especially bilateral apical apices. Follow-up with pulmonary outpatient -Chronic kidney disease stage IIIb likely nephrosclerosis Baseline creatinine 1.8 from July 2023. Secondary nephrosclerosis -Paroxysmal atrial flutter fibrillation that was DC cardioverted 2021..: Currently in sinus rhythm Eliquis. Lopressor 12.5 daily. Amiodarone 200 mg alternate day -Hyperkalemia secondary to underlying chronic kidney disease and acute kidney injury. Treated. Better Aldactone discontinued -Episode of shortness of breath the last less than a minute while carrying a box of around 15 pounds. Likely exertional shortness of breath. -COPD in previous smoker Stable -Hyperlipidemia -Full code Plan - Discharge Summary New Discharge Prescriptions: Continue Furosemide [Lasix] 20 mg PO DAILY Apixaban [Eliquis] 5 mg PO BID Amiodarone [Cordarone] 200 mg PO Q2D Metoprolol Tartrate [Lopressor] 12.5 mg PO DAILY Discontinued Spironolactone [Aldactone] 25 mg PO DAILY #30 tab Discharge Medication List Amiodarone [Cordarone] 200 mg PO Q2D 05/27/24 [History] Apixaban [Eliquis] 5 mg PO BID 05/27/24 [History] Furosemide [Lasix] 20 mg PO DAILY 05/27/24 [History] Metoprolol Tartrate [Lopressor] 12.5 mg PO DAILY 05/27/24 [History] Follow up Appointment(s)/Referral(s): Marcello Guillen DO [STAFF PHYSICIAN] - 06/25/24 9:00 am Juan J English MD [Primary Care Provider] - 1-2 days Sudhakar Mercado [STAFF PHYSICIAN] - 06/11/24 3:15 pm (Come 15 minutes early to fill out new patient paperwork. Please bring ID/drivers licence, insurance card, and home medication list. ) Claude Michael DO [STAFF PHYSICIAN] - 06/20/24 2:00 pm ([place] office) Patient Instructions/Handouts: Acute Kidney Injury (GEN), Holter Monitor (GEN) Activity/Diet/Wound Care/Special Instructions: event monitor placed 05/28/24 Discharge Disposition: HOME SELF-CARE
== END 2024-05-29 15:15 | disposition home or self-care (01) ==
LOC: EC 09:56 → 6NMEDSUR 11:37
PROVIDERS: ADMIT Hospitalist; ATTEND Hospitalist
DX: N17.0 Acute kidney failure with tubular necrosis (principal); E87.5 Hyperkalemia; I13.0 Hypertensive heart and chronic kidney disease with heart failure and stage 1 through stage 4 chronic kidney disease, or unspecified chronic kidney disease; N18.32 Chronic kidney disease, stage 3b; I50.9 Heart failure, unspecified; E78.5 Hyperlipidemia, unspecified; I42.9 Cardiomyopathy, unspecified; I48.0 Paroxysmal atrial fibrillation; I48.20 Chronic atrial fibrillation, unspecified; I34.0 Nonrheumatic mitral (valve) insufficiency; J44.9 Chronic obstructive pulmonary disease, unspecified; Z87.891 Personal history of nicotine dependence; Z79.01 Long term (current) use of anticoagulants; Z79.899 Other long term (current) drug therapy; Z88.8 Allergy status to other drugs, medicaments and biological substances
CPT/HCPCS: 99291; 36415; 94640; 93005; 93308; 93270; 83880; 80053 ×2; 80048; 83735 ×2; 84132; 84484; 85025 ×2; 85610; 85730; 81003; 84145; 71046; 76770; 71250; G0378 ×3; J0613